=== PATIENT | male | born 1955 | race African-American/Black ===

== ENCOUNTER 2020-01-25 17:51 | Emergency (ER) | payer MEDICARE, OTHER ==
[2020-01-25 18:39] LABS: #Eosinphils 0.1 thou/uL (0.0-0.7); #Lymphocytes 1.7 thou/uL (1.20-3.40); #Monocytes 0.7 thou/uL (0.11-0.59); #Neutrophils 4.6 thou/uL (1.40-6.50); %Basophils 0.3 % (0.0-1.0); %Eosinophils 0.9 % (0.0-10.0); %Lymphocytes 24.3 % (21.0-51.0); %Monocytes 9.2 % (0.0-10.0); %Neutrophils 65.4 % (42.0-75.0); Hemoglobin 8.8 g/dL (14.0-18.0); Mean Corpuscular Hemoglobin 29.4 pg (27.0-31.0); Mean Corpuscular Volume 81.6 fL (78.0-98.0); Mean Platelet Volume 8.1 fL (7.4-10.4); Platelet Count 192 thou/uL (130-400); RBC Distribution Width 15.2 % (11.5-14.5); White Blood Cell (WBC) Count 7.1 thou/uL (4.8-10.8)
[2020-01-25 18:45] LABS: INR-International Normal Ratio 1.1; PTT 38.3 sec (22.9-36.1); Prothrombin Time 14.3 sec (12.0-14.7)
[2020-01-25 19:10] LABS: ALT (SGPT) 17 U/L (8-55); AST (SGOT) 17 U/L (5-34); Albumin 3.9 g/dL (3.4-4.8); Alkaline Phosphatase 73 U/L (40-110); Anion Gap 15 mmol/L (10-20); BUN (Urea Nitrogen) 48 mg/dL (8.4-25.7); Bilirubin, Total 0.4 mg/dL (0.2-1.2); Calc. Creatinine Clearance 0 mL/min (70-130); Calcium 9.9 mg/dL (7.8-10.44); Carbon Dioxide 19 mmol/L (23-31); Chloride 108 mmol/L (98-107); Estimated GFR-MDRD 28; Globulin 4.1 g/dL (2.4-3.5); Glucose 293 mg/dL (80-115); Lipase 99 U/L (8-78); Potassium 5.2 mmol/L (3.5-5.1); Sodium 137 mmol/L (136-145)
--- NOTE | 2020-01-25 19:15 | RAD ---
TWO VIEWS RIGHT HUMERUS: Date: 01-25-2020 History: Fall FINDINGS: No displaced fracture. IMPRESSION: No acute findings. POS: [facility]
--- NOTE | 2020-01-25 19:22 | RAD ---
FRONTAL AND LATERAL IMAGING OF THE RIGHT FOREARM: Comparison: None History: Trauma, fall, pain. FINDINGS: There is enthesophyte formation at the insertion of the triceps tendon. No displaced fracture or disl ocation. IMPRESSION: No acute osseous abnormality. POS: [facility]
--- NOTE | 2020-01-25 19:30 | RAD ---
RIGHT HIP TWO VIEWS: History: Fall at home. FINDINGS: There are arthritic changes of the hip. There are no signs of fracture or dislocation. IMPRESSION: No evidence of fracture. POS: [facility]
--- NOTE | 2020-01-25 19:31 | RAD ---
RIGHT ELBOW FOUR VIEWS: History: Fall with elbow injury. FINDINGS: There are arthritic changes of the elbow. There is coricoid and olecranon spur formation. There is a joint effusion present. I do not see definitive evidence for fracture. IMPRESSION: Joint effusion. I do not see definitive evidence for fracture but the possibility of an occult fractu re given the presence of joint effusion should be considered. If patient's pain persists, follow up i n 7-10 days would be recommended. POS: [facility]
--- NOTE | 2020-01-25 19:39 | CT ---
HEAD CT WITHOUT CONTRAST: Date: 11-30-17 Comparison: None History: Fall, on Plavix. Technique: Axial CT imaging at 5 mm intervals from vertex through the skull base without contrast. FINDINGS: The visualized paranasal sinuses and mastoid air cells are well aerated. There is no displaced calvar ial fracture, intracranial hemorrhage, midline shift, or mass effect. Periventricular hypodensity is noted, evidence of small vessel disease. IMPRESSION: No intracranial hemorrhage or displaced calvarial fracture. Stable small vessel disease. No acute fin dings. POS: [facility]
[2020-01-25 19:40] LABS: Bilirubin Negative (Negative); Blood, Urine Negative (Negative); Clarity Clear (Clear); Glucose, Urine (Dipstick) >=1000 mg/dL (Negative); Leukocyte Negative Leu/uL (Negative); Nitrite Negative (Negative); Protein, Urine (Dipstick) 10 mg/dL (Neg-Trace); Urobilinogen Normal mg/dL (Less than 2)
== END 2020-01-25 21:41 | disposition home or self-care (01) ==
LOC: ERS 17:51
DX: S42.411A Displaced simple supracondylar fracture without intercondylar fracture of right humerus, initial encounter for closed fracture (principal); E78.5 Hyperlipidemia, unspecified; E78.00 Pure hypercholesterolemia, unspecified; E11.9 Type 2 diabetes mellitus without complications; F32.9 Major depressive disorder, single episode, unspecified; Z79.84 Long term (current) use of oral hypoglycemic drugs; Z79.82 Long term (current) use of aspirin; Z79.899 Other long term (current) drug therapy; W06.XXXA Fall from bed, initial encounter
CPT/HCPCS: 29105; 36415; 70450; 80053; 81003; 83690; 84484; 85025; 85610; 85730; 93005

== ENCOUNTER 2020-02-18 17:36 | Inpatient (IN) | payer MEDICARE, OTHER ==
[2020-02-18 18:05] LABS: #Lymphocytes 1.5 thou/uL (1.20-3.40); #Monocytes 0.9 thou/uL (0.11-0.59); #Neutrophils 7.5 thou/uL (1.40-6.50); %Basophils 0.3 % (0.0-1.0); %Eosinophils 0.3 % (0.0-10.0); %Lymphocytes 15.2 % (21.0-51.0); %Monocytes 8.5 % (0.0-10.0); %Neutrophils 75.6 % (42.0-75.0); Hemoglobin 8.4 g/dL (14.0-18.0); Mean Corpuscular HGB CONC 35.2 g/dL (32.0-36.0); Mean Corpuscular Hemoglobin 28.9 pg (27.0-31.0); Mean Corpuscular Volume 81.9 fL (78.0-98.0); Mean Platelet Volume 8.9 fL (7.4-10.4); Platelet Count 160 thou/uL (130-400); RBC Distribution Width 15.2 % (11.5-14.5); Red Blood Cell (RBC) Count 2.92 mill/uL (4.70-6.10)
--- NOTE | 2020-02-18 18:27 | RAD ---
XR Chest 1 View Portable History: Fall. Dizziness Comparison: Radiograph 2018 Findings: Calcified granuloma left lung base. No confluent airspace consolidation, pneumothorax or ef fusion. No acute osseous abnormality. Multiple calcified left perihilar lymph nodes. Impression: No acute intrathoracic abnormality.
[2020-02-18 18:34] LABS: ALT (SGPT) 16 U/L (8-55); AST (SGOT) 14 U/L (5-34); Albumin 3.7 g/dL (3.4-4.8); Alkaline Phosphatase 76 U/L (40-110); Anion Gap 17 mmol/L (10-20); BUN (Urea Nitrogen) 18 mg/dL (8.4-25.7); Calc. Creatinine Clearance 0 mL/min (70-130); Calcium 9.3 mg/dL (7.8-10.44); Carbon Dioxide 22 mmol/L (23-31); Chloride 101 mmol/L (98-107); Estimated GFR-MDRD 34; Glucose 314 mg/dL (80-115); Potassium 4.5 mmol/L (3.5-5.1); Protein, Total 7.7 g/dL (5.8-8.1); Sodium 135 mmol/L (136-145)
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
[2020-02-18 18:52] LABS: CKMB 2.8 ng/mL (0-6.6)
[2020-02-18] MEDS ORDERED: hydrALAZINE 20 MG/ML VIAL ONE (18:57)
--- NOTE | 2020-02-18 18:57 | CT ---
CT CERVICAL SPINE WITHOUT CONTRAST: 02/18/20 HISTORY: Fall. Dizziness. COMPARISON: 11/30/17 FINDINGS: No craniocervical dissociation. Appropriate alignment of the lateral masses of C1 and C2. Intact odon toid process. Appropriate alignment of the facets. Stable extensive osteophyte formation throughout the cervical spine. No prevertebral soft tissue swelling. Atherosclerosis of both carotid arteries is noted. No acute changes in the upper mediastinum and lung apices. There are varying degrees of central canal stenosis and foraminal narrowing on the basis of degenerative change. At least moderate central daniela l stenosis at C3-C4, similar to the previous examination. Technique limits evaluation. Cervical spine vertebral body height is maintained. There is no cervical spine fracture. IMPRESSION: 1. No cervical spine fracture. 2. Stable degenerative changes and osteophytes throughout the cervical spine. POS: [facility]
--- NOTE | 2020-02-18 18:58 | RAD ---
TWO VIEWS RIGHT ELBOW: 02/18/20 HISTORY: Fall. Pain. COMPARISON: None. FINDINGS: There appears to be a possible joint effusion. No definite fracture, cortical irregularity or periost eal reaction. IMPRESSION: Joint effusion without obvious fracture. Correlate clinically. If there is pain or point tenderness, immobilization and follow-up imaging in 7-10 days. POS: [facility]
--- NOTE | 2020-02-18 20:05 | PDOC.FPRHP ---
- History of Present Illness Chief Complaint: fall History of Present Illness: Pt is a 64yo M with a PMH of HTN, previous stroke, DM, high cholesterol, dyslipidemia, and CKD stage 3 who presents to ED after falling from his walker. Patient was sitting on his walker, reached over to pick something up, his walker went out from under him and fell off and hit the back of his head and right arm. No LOC. He was not able to get up, so called EMS. Patient states he has been feeling fine recently. Since the fall he has an occasional headache and his vision is blurry. He denies chest pain, SOB. He had a fall and was seen in the hospital 01/25/20. Patient also complains of right leg pain and swelling. He says it is worse with laying down and with movement, off and on throughout the day, nothing relieves it, pain travels from lower leg up to thigh. ED Course: Patient's BP was 220/120 en route to the ER and was given 1x Nitro, Zofran, Hydralazine and Labetalol which decreased his BP to 147/75. Troponin was elevated at .037. Patient complaining of right elbow pain after fall and XR of Right elbow showed no fracture but patient has swelling, pain and decreased range of motion, so patient was splinted and put in a sling. - Allergies/Adverse Reactions Allergies Allergy/AdvReac Type Severity Reaction Status Date / Time sulfamethoxazole Allergy Verified 11/10/19 13:38 [From Bactrim] trimethoprim [From Bactrim] Allergy Verified 11/10/19 13:38 - Home Medications Medication Instructions Recorded Confirmed Type glipiZIDE [Glucotrol XL] 1 tab PO DAILY 03/26/16 02/18/20 History metFORMIN HCl [Glucophage] 1,000 mg PO BID 03/26/16 02/18/20 History Aspirin [Ecotrin Low Strength] 81 mg PO DAILY #0 tab 03/31/16 02/18/20 Rx Atorvastatin Calcium [Lipitor] 80 mg PO HS #0 tab 03/31/16 02/18/20 Rx Clopidogrel Bisulfate [Plavix] 75 mg PO DAILY #0 tab 03/31/16 02/18/20 Rx Ubidecarenone [CoQ-10] 300 mg PO HS 08/29/16 02/18/20 History Ubidecarenone [Coenzyme Q10] 1 tab PO HS 08/29/16 02/18/20 History Carvedilol 25 mg PO BID 02/18/20 02/18/20 History Ergocalciferol (Vitamin D2) 1 tab PO Q7DAYS 02/18/20 02/18/20 History [Vitamin D2] Gabapentin 400 mg PO TID 02/18/20 02/18/20 History Hydrochlorothiazide 25 mg PO DAILY 02/18/20 02/18/20 History Iron 27 mg PO DAILY 02/18/20 02/18/20 History Lisinopril 1 tab PO DAILY 02/18/20 02/18/20 History Sodium Bicarbonate 650 mg PO BID 02/18/20 02/18/20 History hydrALAZINE HCl [Hydralazine HCl] 1 tab PO BID 02/18/20 02/18/20 History - History PMHx: HTN, previous stroke, DM, cholesterol, dyslipidemia, anemia, CKD stage 3 PSHx: Denies FHx: Denies Social: Lives at home with sister. Denies tobacco, drug, or alcohol use. NKDA - Review of Systems General: denies: fever/chills, weight/appetite/sleep changes Eyes: reports: vision changes. denies: eye pain ENT: denies: nasal congestion Respiratory: denies: cough, shortness of breath Cardiovascular: reports: edema. denies: chest pain Gastrointestinal: denies: nausea, vomiting, abdominal pain Genitourinary: denies: incontinence Skin: denies: rashes Musculoskeletal: reports: pain, swelling Neurological: denies: syncope - Vital signs BP: 147/75 HR: 99 RR:17 Tmax: 99.8 Pox: 97% on RA Wt: 94.8 - Physical Exam Constitutional: NAD HEENT: normocephalic and atraumatic, PERRLA, no scleral icterus -HEENT: dry mucous membranes, poor dentition Neck: trachea midline, no LAD Chest: no-tender to palpation Heart: RRR, no murmurs/rubs/gallops, pulses present Lungs: CTAB, no respiratory distress Abdomen: soft, non-tender, bowel sounds present -Musculoskeletal: right arm was wrapped and in sling. Right leg had 2+ pretibial edema, no swelling, warmth, and non-tender to palpation Neurological: no focal deficit, CN II-XII intact, normal sensation Skin: no rash/lesions Heme/Lymphatic: no unusual bruising or bleeding Psychiatric: normal mood and affect FMR H&P: Results - Labs Result Diagrams: 02/18/20 17:55 02/18/20 17:55 Lab results: WBC 10.0 thou/uL (4.8-10.8) 02/18/20 17:55 Hgb 8.4 g/dL (14.0-18.0) L 02/18/20 17:55 Hct 23.9 % (42.0-52.0) L 02/18/20 17:55 MCV 81.9 fL (78.0-98.0) 02/18/20 17:55 Plt Count 160 thou/uL (130-400) 02/18/20 17:55 Neutrophils % 75.6 % (42.0-75.0) H 02/18/20 17:55 Sodium 135 mmol/L (136-145) L 02/18/20 17:55 Potassium 4.5 mmol/L (3.5-5.1) 02/18/20 17:55 Chloride 101 mmol/L (98-107) 02/18/20 17:55 Carbon Dioxide 22 mmol/L (23-31) L 02/18/20 17:55 BUN 18 mg/dL (8.4-25.7) 02/18/20 17:55 Creatinine 2.34 mg/dL (0.7-1.3) H 02/18/20 17:55 Glucose 314 mg/dL (80-115) H 02/18/20 17:55 Calcium 9.3 mg/dL (7.8-10.44) 02/18/20 17:55 Total Bilirubin 1.0 mg/dL (0.2-1.2) 02/18/20 17:55 AST 14 U/L (5-34) 02/18/20 17:55 ALT 16 U/L (8-55) 02/18/20 17:55 Alkaline Phosphatase 76 U/L (40-110) 02/18/20 17:55 CK-MB (CK-2) 2.8 ng/mL (0-6.6) 02/18/20 17:55 Serum Total Protein 7.7 g/dL (5.8-8.1) 02/18/20 17:55 Albumin 3.7 g/dL (3.4-4.8) 02/18/20 17:55 Laboratory Tests 02/18/20 17:55 Troponin I 0.037 H FMR H&P: A/P - Problem List (1) Chronic kidney disease Current Visit: No Status: Chronic Code(s): N18.9 - CHRONIC KIDNEY DISEASE, UNSPECIFIED Qualifiers: Chronic kidney disease stage: stage 2 (mild) Qualified Code(s): N18.2 - Chronic kidney disease, stage 2 (mild) (2) Diabetes mellitus Current Visit: No Status: Chronic Code(s): E11.9 - TYPE 2 DIABETES MELLITUS WITHOUT COMPLICATIONS (3) HLD (hyperlipidemia) Current Visit: No Status: Chronic Code(s): E78.5 - HYPERLIPIDEMIA, UNSPECIFIED (4) HTN (hypertension) Current Visit: No Status: Chronic Code(s): I10 - ESSENTIAL (PRIMARY) HYPERTENSION (5) Normocytic anemia Current Visit: No Status: Chronic Code(s): D64.9 - ANEMIA, UNSPECIFIED - Plan 1. Hypertensive Urgency -patient's BP was 220/120 en route to the ER and was given labetalol, hydralazine and nitro and BP down to 147/75 -continue home meds:lisinopril, carvedilol, hydralazine, monitor and titrate as needed -hydralazine 10mg IVP prn if Ps>180 -heart score 5 2. NSTEMI type II -elevated troponin in the ED at .037. Likely due to CKD or elevated BP -trend troponin -EKG was normal 3. Fall -consult PT/OT and case management -ambulate with assistance 4. Right elbow sprain -Currently splinted and put in sling. No evidence of fracture -monitor for pain 4. DM -history of Diabetes, checks blood sugars at home and they range from 100s-200s -glucose 314 on admission -continue home meds and started sliding scale insulin 5. CKD Stage 3 -Cr elevated at 2.5, baseline is 3-4 in the past -calculated Cr Cl 42ml/min - FMR H&P: Upper Level - Plan Date/Time: 02/18/202001 IFrancois DO, have evaluated this patient and agree with findings/plan as outlined by improvement intern resident. Pertinent changes/additions are listed here. 64 y/o m presents after a fall He reports 2 recent mechanical falls, denies syncope, chest pain, dyspnea, weakness, or dizziness preceding or after the falls. He recently started using a walker 3 months ago because it was hard for him to get up on his own. Pmhx sig for anemia, CKD, htn, and DMII. BP in ED as high as 205/94, given nitro and hydralazine. EKG was wnl, no ST changes or rhythm irregularities. Hypertensive urgency in the setting of chronic htn, ckd, pt likely poorly controlled at baseline. Hydralazine prn for SBPs>180, continue home meds and consider increasing regimen. Monitor on tele for arrhythmias, orthostatic BPs. NSTEMII likely related to increased heart strain from elevated blood pressures, no active chest pain, trend troponins. LIZZIE on/vs CKD, likely at baseline, monitor. Anemia of chronic disease with hb near previous values, continue to monitor. Pt recorded a temp upon arriving to the floor of 101.1, no additional symptoms or travel, will eval further. Please see improvement intern note for mgmt. of additional chronic disease. Will admit to tele obs for further work-up/eval. LOS<48hrs. Addendum - Attending - Attending Attestation Date/Time: 02/18/20 [id number] I personally evaluated the patient and discussed the management with Dr. Tucker/ Pradip I agree with the History, Examination, Assessment and Plan documented above with any addition or exceptions noted below. Presents following a fall from seated position. found to have elevated BP in the 200s/100s. This resolved with hydralazine, labetalol, and nitro paste. Stated dizziness resolved as well. While on floor, patient developed fever up to 101F. Denies prior fever, cough, congestion, SOB, URI sx, or COVID exposure. Exam unremarkable except for right elbow pain. Admit for HTN urgency, mechanical fall, and SIRS. No obvious source of infection. Blood and urine cultures obtained. Procal pending. CXR negative. EXG unremarkable. Do not suspect COVID at this time. Obs, Tele, <2 midnights. Abx pending lab further lab results.
[2020-02-18] MEDS ORDERED: Ondansetron ODT 4 MG TAB PO PRN (20:42)
[2020-02-18] MEDS ORDERED: Acetaminophen 650 MG Suppository PR PRN (20:42)
[2020-02-18] MEDS ORDERED: hydrALAZINE 25 MG TAB PO PRN (20:54)
[2020-02-18] MEDS: Acetaminophen 325 MG TAB PO PRN (21:36)
[2020-02-18 21:38] LABS: Troponin I 0.049 ng/mL (< 0.028)
[2020-02-18] MEDS ORDERED: Dextrose 50% Abboject 50 ML SYRINGE SLOW IVP PRN (22:48)
[2020-02-18] MEDS ORDERED: Dextrose 5% in Water 1,000 ML IV PRN (22:48)
[2020-02-19 00:15] LABS: Troponin I 0.055 ng/mL (< 0.028)
[2020-02-19 00:55] LABS: Bilirubin Negative (Negative); Blood, Urine Negative (Negative); Glucose, Urine (Dipstick) 500 mg/dL (Negative); Ketone, Urine Negative (Negative); Leukocyte Negative (Negative); Nitrite Negative (Negative); Protein, Urine (Dipstick) 100 mg/dL (Neg-Trace); Specific Gravity, Urine 1.015 (1.005-1.030); Urobilinogen 0.2 mg/dL (Less than 2)
[2020-02-19 00:56] LABS: Clarity Clear (Clear); Urine Culture Reflex No No
[2020-02-19] MEDS: cefTRIAXone\\ROCEPHIN 2 GM in Sodium Chloride 0.9% 100 ML IVPB SCH (00:56)
[2020-02-19 01:03] LABS: Bacteria/HPF None Seen HPF (None Seen); RBC/HPF None Seen HPF (0-3); Squamous Epithelial 0-3 HPF (0-3); WBC/HPF None Seen HPF (0-3)
[2020-02-19] MEDS ORDERED: Vancomycin HCl 1.75 GM in Sodium Chloride 0.9% 500 ML IVPB SCH (02:00)
[2020-02-19] MEDS: Acetaminophen 325 MG TAB PO PRN (03:25)
[2020-02-19 04:57] LABS: #Lymphocytes 1.7 thou/uL (1.20-3.40); #Monocytes 0.8 thou/uL (0.11-0.59); #Neutrophils 5.2 thou/uL (1.40-6.50); %Basophils 0.1 % (0.0-1.0); %Eosinophils 0.4 % (0.0-10.0); %Lymphocytes 21.6 % (21.0-51.0); %Monocytes 10.2 % (0.0-10.0); %Neutrophils 67.6 % (42.0-75.0); Hemoglobin 7.7 g/dL (14.0-18.0); Mean Corpuscular HGB CONC 33.6 g/dL (32.0-36.0); Mean Corpuscular Hemoglobin 27.7 pg (27.0-31.0); Mean Corpuscular Volume 82.4 fL (78.0-98.0); Mean Platelet Volume 8.4 fL (7.4-10.4); Platelet Count 141 thou/uL (130-400); RBC Distribution Width 15.3 % (11.5-14.5); Red Blood Cell (RBC) Count 2.77 mill/uL (4.70-6.10); White Blood Cell (WBC) Count 7.7 thou/uL (4.8-10.8)
[2020-02-19 05:23] LABS: Anion Gap 13 mmol/L (10-20); BUN (Urea Nitrogen) 19 mg/dL (8.4-25.7); Calc. Creatinine Clearance 40 mL/min (70-130); Calcium 9.1 mg/dL (7.8-10.44); Carbon Dioxide 24 mmol/L (23-31); Chloride 102 mmol/L (98-107); Estimated GFR-MDRD 32; Glucose 250 mg/dL (80-115); Sodium 135 mmol/L (136-145)
[2020-02-19] MEDS: HumaLOG 300 UNITS/3 ML VIAL SC PRN ×3 (06:20→17:18)
--- NOTE | 2020-02-19 06:23 | PDOC.FM ---
- Subjective Subjective: Patient denies any acute concerns. He has persistent elbow pain unchanged from yesterday. He denies dyspnea, difficulty urination, and leg pain. He endorses persistent blurry vision in his L eye. He has a headache that waxes and wanes- no pain at time of exam. - Objective MAR Reviewed: Yes Vital Signs & Weight: Vital Signs (12 hours) Temp Pulse Resp BP BP BP Pulse Ox 02/19/20 03:20 100.4 F H 103 H 20 170/73 H 97 02/18/20 23:29 98.9 F 100 18 114/58 L 103/53 L 110/50 L 94 L 02/18/20 20:40 101.1 F H 86 20 177/84 H 97 Weight Weight 92.17 kg I&O: 02/17/20 02/18/20 02/19/20 06:59 06:59 06:59 Intake Total 1220 Output Total 450 Balance 770 Result Diagrams: 02/19/20 04:37 02/19/20 04:37 Phys Exam - Physical Examination Constitutional: NAD HEENT: moist MMs, sclera anicteric Neck: no nodes, no JVD Respiratory: no wheezing, clear to auscultation bilateral Cardiovascular: RRR, no significant murmur, no rub Gastrointestinal: soft, non-tender, no distention, positive bowel sounds Musculoskeletal: pulses present Edema over R elbow, splinted and wrapped Neurological: moves all 4 limbs Psychiatric: normal affect Skin: no rash, normal turgor Dx/Plan - Plan Plan: NSTEMI type II -elevated troponin in the ED at .037 -> 0.058. Likely due to CKD or elevated BP - denies chest pain -EKG with no signs of acute ischemia Hypertension - initially uncontrolled, now controlled with home meds -patient's BP was 220/120 en route to the ER -Home meds:lisinopril, carvedilol, hydralazine, monitor and titrate as needed -hydralazine 10mg IVP prn if Ps>180 -heart score 5 Fall -consult PT/OT and case management -ambulate with assistance Right elbow sprain -Currently splinted and put in sling. No evidence of fracture -monitor for pain DM - A1c 10.9 -glucose 314 on admission -continue home meds and started sliding scale insulin 5. CKD Stage 3 -Cr elevated at 2.5, baseline is 3-4 in the past -calculated Cr Cl 42ml/min Addendum - Attending - Attending Attestation Date/Time: 02/19/20 0277 I personally evaluated the patient and discussed the management with Dr. Ellison I agree with the History, Examination, Assessment and Plan documented above with any addition or exceptions noted below - Patient enie complaints except for right elbow pain. Tm 101.2 VSS. A/P: 1) Hypertensive urgency- BP improved; continue current meds and adjust as indicated. 2) Fever- uncertain source except for right elbow with warmth and pain- will consult ortho for further evaluation. 3) DM- continue home meds and adjust as indicated. Disposition: Patient PCP found to be [facility] in [place]- will transfer care to hospitalist. training facilitator physician contacted and will assume care.
[2020-02-19 07:59] LABS: Hemoglobin A1c 10.9 % (4.0-6.0)
[2020-02-19 08:09] LABS: Troponin I 0.058 ng/mL (< 0.028)
[2020-02-19] MEDS: Sodium Bicarbonate Tab 325 MG TAB PO SCH ×2 (09:29→20:18)
[2020-02-19] MEDS: Enoxaparin Sodium 40 MG/0.4 ML SYRINGE SC SCH (09:29)
[2020-02-19] MEDS: Lisinopril 20 MG TAB PO SCH (09:30)
[2020-02-19] MEDS: hydrALAZINE 25 MG TAB PO SCH ×2 (09:30→20:19)
[2020-02-19] MEDS: Hydrochlorothiazide 25 MG TAB PO SCH (09:30)
[2020-02-19] MEDS: metFORMIN 500 MG TAB PO SCH ×2 (09:30→16:20)
[2020-02-19] MEDS: Carvedilol 25 MG TAB PO SCH ×2 (09:30→20:19)
[2020-02-19] MEDS: Gabapentin 400 MG CAP PO SCH ×3 (09:30→20:19)
[2020-02-19] MEDS: Clopidogrel Bisulfate 75 MG TAB PO SCH (09:30)
[2020-02-19] MEDS: Aspirin 81 mg Enteric Coated Tablet PO SCH (09:30)
[2020-02-19] MEDS: Ferrous Sulfate 325 MG TAB PO SCH (09:31)
[2020-02-19] MEDS: Ubidecarenone 50 MG CAP PO SCH (20:19)
[2020-02-19] MEDS: Atorvastatin Calcium 40 MG TAB PO SCH (20:19)
[2020-02-19] MEDS ORDERED: UBIDECARENONE 300 MG PO SCH (21:00)
--- NOTE | 2020-02-19 22:27 | CON ---
DATE OF CONSULTATION: CHIEF COMPLAINT: Right elbow pain. HISTORY OF PRESENT ILLNESS: Mr. Hutchinson is a 64-year-old male who was admitted for hypertensive urgency with a blood pressure of 220/120. He has fallen several times. He fell 3 weeks ago and landed on his right arm. He had elbow pain at that time. He reports being evaluated and splinted. He fell again yesterday onto the arm and has worsening pain since then. He has been again in a splint. He did have a fever overnight, and there has been some concern that he may have an elbow infection. Orthopedics was consulted to evaluate the elbow. He is currently resting in a sling. He is lying in bed. He is comfortable at rest. PAST MEDICAL HISTORY: Hypertension, previous stroke, diabetes, hypercholesterolemia, chronic anemia, chronic kidney disease. PAST SURGICAL HISTORY: None. FAMILY MEDICAL HISTORY: Noncontributory. SOCIAL HISTORY: The patient lives with his sister. He denies tobacco, alcohol, or drug use. ALLERGIES: NO KNOWN DRUG ALLERGIES. IMAGES: X-rays of the right elbow demonstrate an elbow effusion. There is no acute fracture or deformity. PHYSICAL EXAMINATION: VITAL SIGNS: Temperature is 99.2. He did have a temperature of 100.4 last night. Blood pressure is 133/64, 98% on room air. GENERAL: He is lying supine. He is alert. He answers questions appropriately. No apparent distress. HEENT: Normocephalic and atraumatic. MUSCULOSKELETAL: The right arm is evaluated. It is warm and well perfused. He is sitting at a 90 degrees angle of flexion and he flexes beyond that only approximately 5 to 10 degrees without pain. The elbow is somewhat warm to touch. He has no significant olecranon bursal swelling, but there is some swelling of the anterolateral elbow. He is tender to palpation at that site. Neurovascular intact in the hand. IMPRESSION: History of recent falls with elbow injury, hypertensive urgency, possible underlying elbow infection versus gouty arthritis. PLAN: At this point, I would like to order some labs for tomorrow morning including a CBC, ESR, and CRP as well as uric acid level. We will see if the patient continues to have fevers in-house, his exam changes. If he continues to be febrile and laboratory studies show an inflammatory condition, we likely will need to proceed with elbow aspiration. We will let him eat and drink for now tonight. We will re-evaluate the patient first thing in the morning. Job ID: [id number]
[2020-02-20] MEDS: cefTRIAXone\\ROCEPHIN 2 GM in Sodium Chloride 0.9% 100 ML IVPB SCH (00:04)
[2020-02-20] MEDS: Vancomycin 1 GM in Premix Bag 1 BAG IVPB SCH (02:21)
[2020-02-20 04:47] LABS: #Lymphocytes 1.4 thou/uL (1.20-3.40); #Monocytes 0.6 thou/uL (0.11-0.59); #Neutrophils 5.1 thou/uL (1.40-6.50); %Basophils 0.1 % (0.0-1.0); %Eosinophils 0.5 % (0.0-10.0); %Monocytes 7.9 % (0.0-10.0); %Neutrophils 71.5 % (42.0-75.0); Hemoglobin 7.7 g/dL (14.0-18.0); Mean Corpuscular HGB CONC 33.6 g/dL (32.0-36.0); Mean Corpuscular Hemoglobin 27.8 pg (27.0-31.0); Mean Corpuscular Volume 82.7 fL (78.0-98.0); Mean Platelet Volume 8.8 fL (7.4-10.4); Platelet Count 159 thou/uL (130-400); RBC Distribution Width 15.3 % (11.5-14.5); Red Blood Cell (RBC) Count 2.77 mill/uL (4.70-6.10); White Blood Cell (WBC) Count 7.1 thou/uL (4.8-10.8)
[2020-02-20 05:15] LABS: CRP (Inflammatory) 18.33 mg/dL (= or < 0.5); Uric Acid 11.8 mg/dL (3.5-7.2)
[2020-02-20 07:01] LABS: ALT (SGPT) 22 U/L (8-55); AST (SGOT) 29 U/L (5-34); Albumin 3.2 g/dL (3.4-4.8); Alkaline Phosphatase 88 U/L (40-110); Anion Gap 15 mmol/L (10-20); BUN (Urea Nitrogen) 20 mg/dL (8.4-25.7); Bilirubin, Total 0.4 mg/dL (0.2-1.2); CK (CPK) 410 U/L (30-200); Calc. Creatinine Clearance 40 mL/min (70-130); Calcium 9.4 mg/dL (7.8-10.44); Carbon Dioxide 23 mmol/L (23-31); Chloride 104 mmol/L (98-107); Estimated GFR-MDRD 33; Globulin 4.2 g/dL (2.4-3.5); Glucose 114 mg/dL (80-115); Potassium 3.9 mmol/L (3.5-5.1); Protein, Total 7.4 g/dL (5.8-8.1); Sodium 138 mmol/L (136-145)
[2020-02-20] MEDS: Acetaminophen 325 MG TAB PO PRN ×3 (09:18→22:40)
[2020-02-20] MEDS: Aspirin 81 mg Enteric Coated Tablet PO SCH (09:20)
[2020-02-20] MEDS: Hydrochlorothiazide 25 MG TAB PO SCH (09:20)
[2020-02-20] MEDS: hydrALAZINE 25 MG TAB PO SCH ×2 (09:20→21:01)
[2020-02-20] MEDS: Carvedilol 25 MG TAB PO SCH ×2 (09:21→21:01)
[2020-02-20] MEDS: Gabapentin 400 MG CAP PO SCH ×2 (09:21→21:01)
[2020-02-20] MEDS: Ferrous Sulfate 325 MG TAB PO SCH (09:21)
[2020-02-20] MEDS: Clopidogrel Bisulfate 75 MG TAB PO SCH (09:21)
[2020-02-20] MEDS: Lisinopril 20 MG TAB PO SCH (09:21)
[2020-02-20] MEDS: Insulin Glargine 10 UNITS in Pre-Filled Syringe 1 EACH SC SCH (09:24)
[2020-02-20] MEDS: Enoxaparin Sodium 40 MG/0.4 ML SYRINGE SC SCH (09:26)
--- NOTE | 2020-02-20 13:48 | PRG ---
DATE OF SERVICE: 02/20/2020 SUBJECTIVE: Mr. Hutchinson today is examined with myself and Dr. Valeriy Rodriguez for his painful right elbow. I will refer you to Dr. Rodriguez's consultation note dated February 19, 2020, for details of his history of present illness. Today, Mr. Hutchinson continues to complain of right elbow pain with any type of motion. He points to the lateral aspect and anterior aspect of the elbow as areas of maximal discomfort. He does not feel as though the symptoms have improved whatsoever. He also continues to run some low-grade fevers. OBJECTIVE: VITAL SIGNS: Temperature of 99, heart rate of 99, respiratory rate of 20, and blood pressure of 147/72. EXTREMITIES: The right upper extremity is remarkable for a sling, that was adjusted. The arm is remarkable for increased warmth at the elbow as well as the lower arm. He is found to have intact sensation in the radial, median, and ulnar distributions distally. He is able to wiggle his fingers and wrist normally. The elbow has an arc of motion from 95 degrees to approximately 60 degrees with pain beyond this narrow range of motion. LABORATORY DATA: He was found to have a white count of 7, hematocrit of 22.9, and 159,000 platelets. His CRP is 18.3 with a sedimentation rate of 81 and his uric acid is 11.8. ASSESSMENT: Today, I again discussed with the patient that the differential includes gout versus a septic joint. Given the fact that he has been running low-grade fevers, does have elevated inflammatory markers and his pain does feel consistent with infection, I would like to proceed with an incision and drainage of this right elbow. I did discuss with the patient that his uric acid level is certainly elevated and this may well be gout. However, given that he has been on antibiotics, I am not sure an aspiration would be terribly helpful from the standpoint of isolating organism, and I think given the duration of time that he has had pain, the fevers with no obvious infectious source other than this elbow makes me concerned for septic joint. We will place the patient at n.p.o. after midnight. We will hold his Lovenox. Plan is to proceed to the operating room tomorrow morning for incision and drainage. Informed consent will be obtained prior to surgery. Job ID: [id number] [facility]
--- NOTE | 2020-02-20 17:45 | PDOC.HOSPP ---
- Subjective Encounter Date: 02/20/20 Encounter Time: 15:50 Subjective: pt up in bed no complains. - Objective Vital Signs & Weight: Vital Signs (12 hours) Temp Pulse Pulse Pulse Pulse Resp BP 02/20/20 16:00 97.8 F 91 17 02/20/20 12:00 99.7 F H 93 17 02/20/20 10:30 104 H 99 104 H 101/59 L 02/20/20 09:20 102 H 02/20/20 09:05 101 H 174/75 H 02/20/20 08:00 100.5 F H 102 H 17 BP BP BP BP Pulse Ox 02/20/20 16:00 137/63 96 02/20/20 12:00 108/53 L 96 02/20/20 10:30 121/56 L 121/61 02/20/20 09:20 02/20/20 09:05 02/20/20 08:00 128/61 95 Weight Weight 205 lb I&O: 02/19/20 02/20/20 02/21/20 06:59 06:59 06:59 Intake Total 1220 1250 720 Output Total 450 1125 Balance 770 125 720 Result Diagrams: 02/20/20 04:03 02/20/20 04:03 Additional Labs: Accuchecks 02/20/20 02/20/20 02/20/20 16:27 12:32 05:22 POC Glucose 170 H 103 120 H 02/19/20 19:53 POC Glucose 149 H Hospitalist ROS - Review of Systems Cardiovascular: denies: chest pain, palpitations, orthopnea, paroxysmal noc. dyspnea, edema, light headedness, other Gastrointestinal: denies: nausea, vomiting, abdominal pain, diarrhea, constipation, melena, hematochezia, other Genitourinary: denies: dysuria, frequency, incontinence, hematuria, retention, other - Medication Medications: Active Medications Generic Name Dose Route Start Last Admin Trade Name Freq PRN Reason Stop Dose Admin Acetaminophen 650 mg 02/18/20 20:42 02/20/20 13:10 Tylenol PO 650 mg Q4H PRN Administration Headache/Fever/Mild Pain (1-3) Aspirin 81 mg 02/19/20 09:00 02/20/20 09:20 Ecotrin PO 81 mg DAILY GRAYSON Administration Atorvastatin Calcium 80 mg 02/19/20 21:00 02/19/20 20:19 Lipitor PO 80 mg HS GRAYSON Administration Carvedilol 25 mg 02/19/20 09:00 02/20/20 09:21 Coreg PO 25 mg BID GRAYSON Administration Clopidogrel Bisulfate 75 mg 02/19/20 09:00 02/20/20 09:21 Plavix PO 75 mg DAILY GRAYSON Administration Coenzyme Q10 50 mg 02/19/20 21:00 02/19/20 20:19 Coenzyme Q10 PO 50 mg HS GRAYSON Administration Enoxaparin Sodium 40 mg 02/19/20 09:00 02/20/20 09:26 Lovenox SC Not Given 899 GRAYSON Ferrous Sulfate 325 mg 02/19/20 08:00 02/20/20 09:21 Feosol PO 325 mg QAM-WM GRAYSON Administration Gabapentin 400 mg 02/20/20 09:00 02/20/20 09:21 Neurontin PO 400 mg BID GRAYSON Administration Glipizide 10 mg 02/19/20 09:00 02/20/20 09:20 Glucotrol Xl PO 10 mg DAILY GRAYSON Administration Hydralazine HCl 25 mg 02/19/20 09:00 02/20/20 09:20 Apresoline PO 25 mg BID GRAYSON Administration Hydrochlorothiazide 25 mg 02/19/20 09:00 02/20/20 09:20 Hydrochlorothiazide PO 25 mg DAILY GRAYSON Administration Ceftriaxone Sodium 2 gm/ 100 mls @ 200 mls/hr 02/19/20 01:00 02/20/20 00:04 Sodium Chloride IVPB 100 mls 0100 GRAYSON Administration Vancomycin HCl 1 gm/ Device 200 mls @ 200 mls/hr 02/20/20 02:00 02/20/20 02: 21 IVPB 200 mls 0200 GRAYSON Administration Insulin Glargine 10 units/ 0.1 mls @ 0 mls/hr 02/20/20 09:00 02/20/20 09:24 Miscellaneous Medication SC 0.1 mls QAM GRAYSON Administration Insulin Human Lispro 0 units 02/18/20 22:48 02/19/20 17:18 Humalog SC 4 unit .MILD SLIDING SCALE PRN Administration Mild Correctional Scale Lisinopril 40 mg 02/19/20 09:00 02/20/20 09:21 Zestril PO 40 mg DAILY GRAYSON Administration Sodium Chloride 10 ml 02/19/20 21:00 02/20/20 09:27 Flush - Normal Saline IVF 10 ml Q12HR GRAYSON Administration - Exam Heart: negative: RRR, no murmur, no gallops, no rubs, normal peripheral pulses, irregular, diminshed peripheral pulses, murmur present, II/IV, III/IV Extremities: 2+ LE edema Extremities - other findings: right knee warm to touch and swelling, right elbow in sling, Skin: negative: normal turgor, no lesions, no rashes, tenting Neurological - other findings: able to move right fingers. Hosp A/P (1) Joint infection Code(s): M00.9 - PYOGENIC ARTHRITIS, UNSPECIFIED Status: Acute (2) Chronic kidney disease Code(s): N18.9 - CHRONIC KIDNEY DISEASE, UNSPECIFIED Status: Chronic Qualifiers: Chronic kidney disease stage: stage 2 (mild) Qualified Code(s): N18.2 - Chronic kidney disease, stage 2 (mild) (3) Diabetes mellitus Code(s): E11.9 - TYPE 2 DIABETES MELLITUS WITHOUT COMPLICATIONS Status: Chronic (4) HLD (hyperlipidemia) Code(s): E78.5 - HYPERLIPIDEMIA, UNSPECIFIED Status: Chronic (5) HTN (hypertension) Code(s): I10 - ESSENTIAL (PRIMARY) HYPERTENSION Status: Chronic (6) Anemia Code(s): D64.9 - ANEMIA, UNSPECIFIED Status: Acute - Plan pt going for a wash out in am of his right elbow. His right elbow is swollen will get xray. elevated crp and uric acid. will continue abx. will stop metformin he is ckd 3B. will adjust his meds per renal function. will check stool for occult. pt's anemia most likely due to ckd. will check labs in am.
--- NOTE | 2020-02-20 18:49 | RAD ---
Exam: XR Knee Rt 4 View STANDARD HISTORY: Right knee infection. COMPARISON: None FINDINGS: There is tricompartment osteophytosis. Narrowing of the medial joint compartment is present. Mild cap sular distention is present. No acute fracture, dislocation, or other acute osseous abnormality is identified. Vascular calcificat ions are seen posterior to the knee. IMPRESSION: 1. No acute osseous abnormality. There is no osseous destruction identified. 2. Osteoarthritis. 3. Small suprapatellar joint effusion. 4. If there is concern for osteomyelitis, MRI right knee could be performed for further evaluation.
[2020-02-20] MEDS: Ubidecarenone 50 MG CAP PO SCH (21:01)
[2020-02-20] MEDS: Atorvastatin Calcium 40 MG TAB PO SCH (21:01)
[2020-02-20] MEDS ORDERED: Morphine 2 MG/ML VIAL SLOW IVP SCH (23:15)
[2020-02-21] MEDS: cefTRIAXone\\ROCEPHIN 2 GM in Sodium Chloride 0.9% 100 ML IVPB SCH (00:53)
[2020-02-21] MEDS: Vancomycin 1 GM in Premix Bag 1 BAG IVPB SCH (01:27)
[2020-02-21 01:55] LABS: Vancomycin, Trough 14.7 ug/mL
[2020-02-21 04:49] LABS: #Lymphocytes 1.7 thou/uL (1.20-3.40); #Monocytes 0.8 thou/uL (0.11-0.59); #Neutrophils 5.8 thou/uL (1.40-6.50); %Basophils 0.2 % (0.0-1.0); %Eosinophils 0.4 % (0.0-10.0); %Lymphocytes 20.3 % (21.0-51.0); %Monocytes 9.2 % (0.0-10.0); %Neutrophils 69.9 % (42.0-75.0); Hemoglobin 7.7 g/dL (14.0-18.0); Mean Corpuscular HGB CONC 33.1 g/dL (32.0-36.0); Mean Corpuscular Hemoglobin 27.3 pg (27.0-31.0); Mean Corpuscular Volume 82.5 fL (78.0-98.0); Mean Platelet Volume 8.6 fL (7.4-10.4); Platelet Count 194 thou/uL (130-400); RBC Distribution Width 15.2 % (11.5-14.5); White Blood Cell (WBC) Count 8.3 thou/uL (4.8-10.8)
[2020-02-21 05:07] LABS: Anion Gap 12 mmol/L (10-20); BUN (Urea Nitrogen) 22 mg/dL (8.4-25.7); Calc. Creatinine Clearance 39 mL/min (70-130); Calcium 9.5 mg/dL (7.8-10.44); Carbon Dioxide 27 mmol/L (23-31); Chloride 102 mmol/L (98-107); Estimated GFR-MDRD 32; Glucose 108 mg/dL (80-115); Potassium 4.2 mmol/L (3.5-5.1); Sodium 137 mmol/L (136-145)
[2020-02-21] MEDS: Acetaminophen 325 MG TAB PO PRN ×2 (05:07→11:44)
[2020-02-21] MEDS: Carvedilol 25 MG TAB PO SCH ×2 (05:07→20:56)
[2020-02-21] MEDS ORDERED: Bisacodyl 5 MG TAB PO PRN (06:49)
[2020-02-21] MEDS ORDERED: Lidocaine 1% (PF) 30 ML VIAL ONE (11:38)
[2020-02-21] MEDS: hydrALAZINE 25 MG TAB PO SCH ×2 (11:43→20:55)
[2020-02-21] MEDS: Hydrochlorothiazide 25 MG TAB PO SCH (11:43)
[2020-02-21] MEDS: Clopidogrel Bisulfate 75 MG TAB PO SCH (11:44)
[2020-02-21] MEDS: Aspirin 81 mg Enteric Coated Tablet PO SCH (11:44)
[2020-02-21] MEDS: Lisinopril 20 MG TAB PO SCH (11:44)
[2020-02-21] MEDS: Gabapentin 400 MG CAP PO SCH ×2 (11:44→20:56)
[2020-02-21] MEDS: Insulin Glargine 10 UNITS in Pre-Filled Syringe 1 EACH SC SCH (11:45)
[2020-02-21] MEDS: Ferrous Sulfate 325 MG TAB PO SCH (11:48)
--- NOTE | 2020-02-21 12:39 | PDOC.HOSPP ---
- Subjective Encounter Date: 02/21/20 Encounter Time: 12:30 Subjective: f/u for R elbow pain/edema with planned I&D for effusion and concern for septic arthritis. Apparently pt was denied the surgery per Anesthesia due to concern for cardiac workup. - Objective Vital Signs & Weight: Vital Signs (12 hours) Temp Pulse Resp BP BP BP Pulse Ox 02/21/20 11:43 95 02/21/20 10:20 97.4 F L 95 18 165/72 H 169/77 H 96 02/21/20 07:58 96 02/21/20 07:53 98.9 F 98 17 156/70 H 96 02/21/20 05:28 98.7 F 96 153/68 H 02/21/20 03:39 99.5 F 105 H 18 161/73 H 95 Weight Weight 204 lb I&O: 02/20/20 02/21/20 02/22/20 06:59 06:59 06:59 Intake Total 1250 1380 Output Total 1125 Balance 125 1380 Result Diagrams: 02/21/20 04:26 02/21/20 04:26 Additional Labs: Accuchecks 02/21/20 02/21/20 02/20/20 10:38 06:00 20:21 POC Glucose 169 H 119 H 97 02/20/20 16:27 POC Glucose 170 H Microbiology 02/21/20 03:10 Stool Stool Occult Blood (MARYURI) - Final 02/18/20 00:40 Urine clean catch Urine Culture - Final Beta-hemolytic Streptococcus 02/18/20 23:43 Venous blood - Left Arm Blood Culture - Preliminary Specimen has been received and culture in progress. No Growth to date. 02/18/20 21:46 Venous blood - Left Hand Blood Culture - Preliminary NO GROWTH AT 48 HOURS Laboratory Tests 07/15/19 02/18/20 02/18/20 07:20 17:55 17:55 Hgb 8.4 L Creatinine 2.34 H Hemoglobin A1c 13.4 H C-Reactive Protein Procalcitonin Vancomycin Trough 02/18/20 02/19/20 02/19/20 21:46 04:37 04:37 Hgb 7.7 L Creatinine 2.46 H Hemoglobin A1c C-Reactive Protein Procalcitonin 0.56 Vancomycin Trough 02/19/20 02/19/20 02/20/20 04:37 07:31 04:03 Hgb Creatinine Hemoglobin A1c 10.9 H C-Reactive Protein 18.33 H Procalcitonin 0.60 Vancomycin Trough 02/20/20 02/20/20 02/21/20 04:03 04:03 01:26 Hgb 7.7 L Creatinine 2.44 H Hemoglobin A1c C-Reactive Protein Procalcitonin Vancomycin Trough 14.7 Radiology Reviewed by me: Yes (2D echo - EF 55-60%, diast dysfxn) EKG Reviewed by me: Yes (Tele - SR) Hospitalist ROS - Medication Medications: Active Medications Generic Name Dose Route Start Last Admin Trade Name Freq PRN Reason Stop Dose Admin Acetaminophen 650 mg 02/18/20 20:42 02/21/20 11:44 Tylenol PO 650 mg Q4H PRN Administration Headache/Fever/Mild Pain (1-3) Aspirin 81 mg 02/19/20 09:00 02/21/20 11:44 Ecotrin PO 81 mg DAILY GRAYSON Administration Atorvastatin Calcium 80 mg 02/19/20 21:00 02/20/20 21:01 Lipitor PO 80 mg HS GRAYSON Administration Bisacodyl 5 mg 02/21/20 06:49 02/21/20 11:44 Dulcolax PO 5 mg PRN PRN Administration CONSTIPATION Carvedilol 25 mg 02/19/20 09:00 02/21/20 05:07 Coreg PO 25 mg BID GRAYSON Administration Clopidogrel Bisulfate 75 mg 02/19/20 09:00 02/21/20 11:44 Plavix PO 75 mg DAILY GRAYSON Administration Coenzyme Q10 50 mg 02/19/20 21:00 02/20/20 21:01 Coenzyme Q10 PO 50 mg HS GRAYSON Administration Enoxaparin Sodium 40 mg 02/19/20 09:00 02/20/20 09:26 Lovenox SC Not Given 899 GRAYSON Ferrous Sulfate 325 mg 02/19/20 08:00 02/21/20 11:48 Feosol PO 325 mg QAM-WM GRAYSON Administration Gabapentin 400 mg 02/20/20 09:00 02/21/20 11:44 Neurontin PO 400 mg BID GRAYSON Administration Glipizide 10 mg 02/19/20 09:00 02/21/20 11:44 Glucotrol Xl PO 10 mg DAILY GRAYSON Administration Hydralazine HCl 25 mg 02/19/20 09:00 02/21/20 11:43 Apresoline PO 25 mg BID GRAYSON Administration Hydrochlorothiazide 25 mg 02/19/20 09:00 02/21/20 11:43 Hydrochlorothiazide PO 25 mg DAILY GRAYSON Administration Ceftriaxone Sodium 2 gm/ 100 mls @ 200 mls/hr 02/19/20 01:00 02/21/20 00:53 Sodium Chloride IVPB 100 mls 0100 GRAYSON Administration Vancomycin HCl 1 gm/ Device 200 mls @ 200 mls/hr 02/20/20 02:00 02/21/20 01: 27 IVPB 200 mls 0200 GRAYSON Administration Insulin Glargine 10 units/ 0.1 mls @ 0 mls/hr 02/20/20 09:00 02/21/20 11:45 Miscellaneous Medication SC Not Given QAM [facility] Insulin Human Lispro 0 units 02/18/20 22:48 02/19/20 17:18 Humalog SC 4 unit .MILD SLIDING SCALE PRN Administration Mild Correctional Scale Lisinopril 40 mg 02/19/20 09:00 02/21/20 11:44 Zestril PO 40 mg DAILY GRAYSON Administration Sodium Chloride 10 ml 02/19/20 21:00 02/21/20 11:45 Flush - Normal Saline IVF 10 ml Q12HR GRAYSON Administration Sodium Chloride 10 ml 02/19/20 10:10 02/21/20 05:06 Flush - Normal Saline IVF 10 ml PRN PRN Administration Saline Flush - Exam General Appearance: NAD, awake alert Eye: PERRL, anicteric sclera ENT: normocephalic atraumatic, no oropharyngeal lesions Neck: supple, symmetric, no JVD, no thyromegaly, no lymphadenopathy Heart: RRR, no gallops, no rubs, normal peripheral pulses Heart - other findings: S1, S2 Respiratory: CTAB, no wheezes, no rales, no ronchi, normal chest expansion Gastrointestinal: soft, non-tender, non-distended, normal bowel sounds, no palpable masses Extremities: no cyanosis Extremities - other findings: R elbow with TTP, edema, warmth/erythema with fluctuance Skin: normal turgor Neurological: cranial nerve grossly intact, no new deficit Musculoskeletal: normal tone, generalized weakness Musculoskeletal - other findings: R knee edema in suprapatellar region, warm/TTP Psychiatric: normal affect, A&O x 3 Hosp A/P (1) Arthropathy Code(s): M12.9 - ARTHROPATHY, UNSPECIFIED Status: Acute Plan: ? gouty arthropathy vs septic, continue Vancomycin/Rocephin, plan for joint aspiration of R elbow once cardiac cleared, Toradol 15mg IV q6h, Colchicine contraindicated with Coreg, consider Prednisone trial (2) Type 2 myocardial infarction Code(s): I21.A1 - MYOCARDIAL INFARCTION TYPE 2 Status: Acute Plan: Likley due to demand ischemia in context of HTN at the time of admit, Cardiology consult pending, Echo with preserved EF 55-60% (3) Anemia in CKD (chronic kidney disease) Code(s): N18.9 - CHRONIC KIDNEY DISEASE, UNSPECIFIED; D63.1 - ANEMIA IN CHRONIC KIDNEY DISEASE Status: Chronic Plan: Stable H/H trend, monitor clinically (4) Diabetes mellitus Code(s): E11.9 - TYPE 2 DIABETES MELLITUS WITHOUT COMPLICATIONS Status: Chronic Plan: Continue Glargine 10u sc qAM, Glipizide 10mg daily, ISS, ADA (5) HTN (hypertension) Code(s): I10 - ESSENTIAL (PRIMARY) HYPERTENSION Status: Chronic Qualifiers: Hypertension type: essential hypertension Qualified Code(s): I10 - Essential (primary) hypertension Plan: Labile, resume home BP regimen, serial monitoring - Plan continue antibiotics, PT/OT, social insurance administrator, DVT proph w/SCDs Stable currently Add Toradol 15mg IV q6h Ortho planning I&D R elbow when cardiac clearance given Continue Rocephin/Vancomycin Cardiology consult pending AM lab: BMP, CBC
[2020-02-21] MEDS ORDERED: Ketorolac Tromethamine 30 MG/ML VIAL IVP SCH (13:00)
[2020-02-21] MEDS ORDERED: Morphine 2 MG/ML VIAL SLOW IVP PRN (13:03)
[2020-02-21] MEDS: Ketorolac Tromethamine 30 MG/ML VIAL IVP SCH ×2 (18:11→22:59)
[2020-02-21] MEDS: Atorvastatin Calcium 40 MG TAB PO SCH (20:56)
[2020-02-21] MEDS: Ubidecarenone 50 MG CAP PO SCH (20:56)
--- NOTE | 2020-02-21 22:22 | CON ---
DATE OF CONSULTATION: HISTORY OF PRESENT ILLNESS: The patient is a 64-year-old gentleman, who presented with a septic elbow and is here for cardiac evaluation. The patient has a long history of cerebrovascular disease. 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 The patient subsequently has been on medical therapy. The patient denies having any history of chest discomfort. He denies having any dyspnea. The patient underwent drainage of his elbow. He presented after he had a fall. The patient was noted to be markedly hypertensive. He denied having any chest discomfort. He denies having any PND or orthopnea. PAST MEDICAL HISTORY: 1. Cerebrovascular disease. 2. Diabetes mellitus. 3. Hypertension. 4. Dyslipidemia. PAST SURGICAL HISTORY: None. SOCIAL HISTORY: Nonsmoker. ALLERGIES: SULFA DRUGS. MEDICATIONS: 1. Metformin 100 b.i.d. 2. Glucotrol 1 tablet daily. 3. Lisinopril 40 daily. 4. HCTZ 25 daily. 5. Plavix 75 daily. 6. Coreg 25 b.i.d. 7. Lipitor 80 at bedtime. 8. Aspirin 81 daily. 9. Hydralazine 25 b.i.d. FAMILY HISTORY: Positive family history of coronary artery disease. REVIEW OF SYSTEMS: Ten-point system otherwise unremarkable. PHYSICAL EXAMINATION: GENERAL: A well-developed gentleman, in no acute distress. VITAL SIGNS: Blood pressure 165/70. NECK: No jugular venous distention. LUNGS: Clear to auscultation. HEART: Regular rate and rhythm. Normal S1 and S2. ABDOMEN: Nondistended. EXTREMITIES: Showed no edema. VASCULAR: Radial pulses are 2+. LABORATORY DATA: White blood count 8.3, hemoglobin 7.7, hematocrit 23.1, platelets 194. Sodium was 137, potassium 4.2, chloride 102, bicarbonate 27, BUN 22, creatinine 2.5, glucose is 108. Troponin was 0.058. EKG normal sinus rhythm with a prolonged QT interval and an echocardiogram revealed normal EF with diastolic dysfunction. IMPRESSION: 1. Septic elbow. 2. Hypertensive crisis. 3. History of cerebrovascular disease. 4. Diabetes mellitus. 5. Dyslipidemia. 6. Chronic renal failure. PLAN: This gentleman presents with septic elbow. He has apparently underwent drainage. From a cardiac standpoint, he is stable. The patient is on appropriate medication. We will follow this patient with you through his hospitalization. Job ID: [id number] MTDD
[2020-02-22] MEDS: cefTRIAXone\\ROCEPHIN 2 GM in Sodium Chloride 0.9% 100 ML IVPB SCH (01:38)
[2020-02-22] MEDS: Vancomycin 1 GM in Premix Bag 1 BAG IVPB SCH (02:25)
[2020-02-22] MEDS: Ketorolac Tromethamine 30 MG/ML VIAL IVP SCH ×2 (04:56→11:57)
[2020-02-22 05:05] LABS: Anion Gap 12 mmol/L (10-20); BUN (Urea Nitrogen) 30 mg/dL (8.4-25.7); Calc. Creatinine Clearance 35 mL/min (70-130); Calcium 9.1 mg/dL (7.8-10.44); Carbon Dioxide 27 mmol/L (23-31); Chloride 101 mmol/L (98-107); Estimated GFR-MDRD 28; Glucose 105 mg/dL (80-115); Potassium 4.2 mmol/L (3.5-5.1); Sodium 136 mmol/L (136-145)
[2020-02-22 06:11] LABS: #Lymphocytes 1.4 thou/uL (1.20-3.40); #Monocytes 0.7 thou/uL (0.11-0.59); #Neutrophils 5.4 thou/uL (1.40-6.50); %Basophils 0.1 % (0.0-1.0); %Eosinophils 0.5 % (0.0-10.0); %Lymphocytes 18.6 % (21.0-51.0); %Monocytes 8.8 % (0.0-10.0); %Neutrophils 71.9 % (42.0-75.0); Hemoglobin 7.1 g/dL (14.0-18.0); Mean Corpuscular HGB CONC 35.8 g/dL (32.0-36.0); Mean Corpuscular Hemoglobin 29.4 pg (27.0-31.0); Mean Corpuscular Volume 82.1 fL (78.0-98.0); Mean Platelet Volume 8.2 fL (7.4-10.4); Platelet Count 184 thou/uL (130-400); RBC Distribution Width 15.3 % (11.5-14.5); Red Blood Cell (RBC) Count 2.41 mill/uL (4.70-6.10); White Blood Cell (WBC) Count 7.6 thou/uL (4.8-10.8)
[2020-02-22] MEDS: Aspirin 81 mg Enteric Coated Tablet PO SCH (08:52)
[2020-02-22] MEDS: Lisinopril 20 MG TAB PO SCH (08:52)
[2020-02-22] MEDS: Ferrous Sulfate 325 MG TAB PO SCH (08:52)
[2020-02-22] MEDS: Clopidogrel Bisulfate 75 MG TAB PO SCH (08:52)
[2020-02-22] MEDS: Carvedilol 25 MG TAB PO SCH ×2 (08:52→20:15)
[2020-02-22] MEDS: Gabapentin 400 MG CAP PO SCH ×2 (08:52→20:15)
[2020-02-22] MEDS: Hydrochlorothiazide 25 MG TAB PO SCH (08:52)
[2020-02-22] MEDS: hydrALAZINE 25 MG TAB PO SCH ×2 (08:53→20:15)
[2020-02-22] MEDS: Insulin Glargine 10 UNITS in Pre-Filled Syringe 1 EACH SC SCH (08:56)
[2020-02-22] MEDS: Acetaminophen 325 MG TAB PO PRN ×2 (11:48→17:23)
--- NOTE | 2020-02-22 12:21 | PDOC.HOSPP ---
- Subjective Encounter Date: 02/22/20 Encounter Time: 12:00 Subjective: f/u for R elbow arthropathy s/p aspiration pending final identification. Receiving Vanc/Rocephin/Toradol. Nursing reports pt more somnolent today with low-grade fever. Pt states he wants to have a BM but can't, last one 2 days ago. - Objective Vital Signs & Weight: Vital Signs (12 hours) Temp Pulse Resp BP BP Pulse Ox 02/22/20 08:53 95 02/22/20 07:59 95 02/22/20 07:54 98.8 F 95 17 110/59 L 95 02/22/20 03:58 99.7 F H 90 16 112/61 97 02/22/20 00:20 99 Weight Weight 204 lb 3.2 oz I&O: 02/21/20 02/22/20 02/23/20 06:59 06:59 06:59 Intake Total 1380 600 Output Total 300 Balance 1380 300 Result Diagrams: 02/22/20 04:16 02/22/20 04:16 Additional Labs: Accuchecks 02/22/20 02/22/20 02/21/20 11:15 05:45 21:36 POC Glucose 199 H 116 H 143 H 02/21/20 16:53 POC Glucose 198 H Microbiology 02/21/20 03:10 Stool Stool Occult Blood (MARYURI) - Final 02/18/20 00:40 Urine clean catch Urine Culture - Final Beta-hemolytic Streptococcus 02/18/20 23:43 Venous blood - Left Arm Blood Culture - Preliminary Specimen has been received and culture in progress. No Growth to date. 02/18/20 21:46 Venous blood - Left Hand Blood Culture - Preliminary NO GROWTH AT 48 HOURS Laboratory Tests 07/15/19 02/18/20 02/18/20 07:20 17:55 17:55 Hgb 8.4 L Creatinine 2.34 H Hemoglobin A1c 13.4 H C-Reactive Protein Procalcitonin Vancomycin Trough 02/18/20 02/19/20 02/19/20 21:46 04:37 04:37 Hgb 7.7 L Creatinine 2.46 H Hemoglobin A1c C-Reactive Protein Procalcitonin 0.56 Vancomycin Trough 02/19/20 02/19/20 02/20/20 04:37 07:31 04:03 Hgb Creatinine Hemoglobin A1c 10.9 H C-Reactive Protein 18.33 H Procalcitonin 0.60 Vancomycin Trough 02/20/20 02/20/20 02/21/20 04:03 04:03 01:26 Hgb 7.7 L Creatinine 2.44 H Hemoglobin A1c C-Reactive Protein Procalcitonin Vancomycin Trough 14.7 EKG Reviewed by me: Yes (Tele - SR) Hospitalist ROS - Medication Medications: Active Medications Generic Name Dose Route Start Last Admin Trade Name Freq PRN Reason Stop Dose Admin Acetaminophen 650 mg 02/18/20 20:42 02/22/20 11:48 Tylenol PO 650 mg Q4H PRN Administration Headache/Fever/Mild Pain (1-3) Aspirin 81 mg 02/19/20 09:00 02/22/20 08:52 Ecotrin PO 81 mg DAILY GRAYSON Administration Atorvastatin Calcium 80 mg 02/19/20 21:00 02/21/20 20:56 Lipitor PO 80 mg HS GRAYSON Administration Bisacodyl 5 mg 02/21/20 06:49 02/21/20 11:44 Dulcolax PO 5 mg PRN PRN Administration CONSTIPATION Carvedilol 25 mg 02/19/20 09:00 02/22/20 08:52 Coreg PO 25 mg BID GRAYSON Administration Clopidogrel Bisulfate 75 mg 02/19/20 09:00 02/22/20 08:52 Plavix PO 75 mg DAILY GRAYSNO Administration Coenzyme Q10 50 mg 02/19/20 21:00 02/21/20 20:56 Coenzyme Q10 PO 50 mg HS GRAYSON Administration Enoxaparin Sodium 40 mg 02/19/20 09:00 02/20/20 09:26 Lovenox SC Not Given 8[facility] Ferrous Sulfate 325 mg 02/19/20 08:00 02/22/20 08:52 Feosol PO 325 mg QAM-WM GRAYSON Administration Gabapentin 400 mg 02/20/20 09:00 02/22/20 08:52 Neurontin PO 400 mg BID GRAYSON Administration Glipizide 10 mg 02/19/20 09:00 02/22/20 08:52 Glucotrol Xl PO 10 mg DAILY GRAYSON Administration Hydralazine HCl 25 mg 02/19/20 09:00 02/22/20 08:53 Apresoline PO 25 mg BID GRAYSON Administration Hydrochlorothiazide 25 mg 02/19/20 09:00 02/22/20 08:52 Hydrochlorothiazide PO 25 mg DAILY GRAYSON Administration Ceftriaxone Sodium 2 gm/ 100 mls @ 200 mls/hr 02/19/20 01:00 02/22/20 01:38 Sodium Chloride IVPB 100 mls 0100 GRAYSON Administration Vancomycin HCl 1 gm/ Device 200 mls @ 200 mls/hr 02/20/20 02:00 02/22/20 02: 25 IVPB 200 mls 0200 GRAYSON Administration Insulin Glargine 10 units/ 0.1 mls @ 0 mls/hr 02/20/20 09:00 02/22/20 08:56 Miscellaneous Medication SC Not Given QAM GRAYSON Insulin Human Lispro 0 units 02/18/20 22:48 02/19/20 17:18 Humalog SC 4 unit .MILD SLIDING SCALE PRN Administration Mild Correctional Scale Ketorolac Tromethamine 15 mg 02/21/20 18:00 02/22/20 11:57 Toradol IVP 02/26/20 18:01 Not Given Q6HR GRAYSON Lisinopril 40 mg 02/19/20 09:00 02/22/20 08:52 Zestril PO 40 mg DAILY GRAYSON Administration Sodium Chloride 10 ml 02/19/20 21:00 02/22/20 11:50 Flush - Normal Saline IVF 10 ml Q12HR GRAYSON Administration Sodium Chloride 10 ml 02/19/20 10:10 02/22/20 04:56 Flush - Normal Saline IVF 10 ml PRN PRN Administration Saline Flush - Exam General - other findings: somnolent but answers questions Eye: PERRL, anicteric sclera ENT: normocephalic atraumatic, no oropharyngeal lesions ENT - other findings: poor dentition Neck: supple, symmetric, no JVD, no thyromegaly, no lymphadenopathy Heart: RRR, no gallops, no rubs, normal peripheral pulses Heart - other findings: S1, S2 Respiratory: CTAB, no wheezes, no rales, no ronchi, normal chest expansion, no tachypnea Gastrointestinal: soft, normal bowel sounds, no guarding, no rigidity, tender to palpation Gastrointestinal - other findings: mild distention Extremities: no cyanosis, no clubbing Extremities - other findings: R elbow with edema/warmth/TTP Skin: normal turgor, no lesions Neurological: cranial nerve grossly intact Musculoskeletal: generalized weakness Musculoskeletal - other findings: R knee with edema/warmth Psychiatric: oriented to person, oriented to place, somnolent Hosp A/P (1) Arthropathy Code(s): M12.9 - ARTHROPATHY, UNSPECIFIED Status: Acute Plan: ? septic vs gouty, continue Vancomycin/Rocephin, hold Toradol due to LIZZIE, R elbow aspiration cx pending (2) Type 2 myocardial infarction Code(s): I21.A1 - MYOCARDIAL INFARCTION TYPE 2 Status: Acute Plan: Likely demand ischemia, no acute intervention, medical mgmt (3) LIZZIE (acute kidney injury) Code(s): N17.9 - ACUTE KIDNEY FAILURE, UNSPECIFIED Status: Acute Plan: Start NS IV, avoid nephrotoxic meds and limit contrast exposure, serial creatinine (4) Anemia in CKD (chronic kidney disease) Code(s): N18.9 - CHRONIC KIDNEY DISEASE, UNSPECIFIED; D63.1 - ANEMIA IN CHRONIC KIDNEY DISEASE Status: Chronic Plan: Serial H/H monitoring, no active blood loss identified (5) Diabetes mellitus Code(s): E11.9 - TYPE 2 DIABETES MELLITUS WITHOUT COMPLICATIONS Status: Chronic (6) HTN (hypertension) Code(s): I10 - ESSENTIAL (PRIMARY) HYPERTENSION Status: Chronic Qualifiers: Hypertension type: essential hypertension Qualified Code(s): I10 - Essential (primary) hypertension (7) Constipation Code(s): K59.00 - CONSTIPATION, UNSPECIFIED Status: Acute Qualifiers: Constipation type: slow transit constipation Qualified Code(s): K59.01 - Slow transit constipation Plan: Start Dulcolax supp, Senokot-S - Plan continue antibiotics, PT/OT, legal services professional, DVT proph w/SCDs Stable currently Toradol 15mg IV q6h, hold given LIZZIE Await R elbow aspiration cx Continue Rocephin/Vancomycin Cardiology consult appreciated Start NS IV @ 100ml/h Bowel regimen AM lab: BMP, CBC
[2020-02-22] MEDS: Sodium Chloride 0.9% 1,000 ML IV SCH ×2 (12:39→20:21)
[2020-02-22] MEDS: Bisacodyl 10 MG SUPP PR SCH ×2 (12:40→20:14)
[2020-02-22] MEDS ORDERED: Senokot S 8.6-50 MG TAB PO SCH (12:45)
--- NOTE | 2020-02-22 14:20 | PRG ---
DATE OF SERVICE: 02/22/2020 SUBJECTIVE: The patient is seen in the telemetry unit. He underwent arthrocentesis of the right elbow yesterday by our team. This specimen was sent to the lab. Results are pending. Currently at bedside, the patient appears somewhat aphasic. He is not talking. He appears somewhat confused. History is limited today. OBJECTIVE: VITAL SIGNS: Show temperature of 99.7 at 3:58 a.m. Current vital signs 98.8, pulse of 95, respiratory rate of 17, O2 saturation 95% on room air, and blood pressure of 110/59. GENERAL: The patient is awake and looking about the room. As described above, he is somewhat aphasic today which is different in appearance than before. MUSCULOSKELETAL: Evaluation of his right elbow shows no change in exam. He holds the elbow flexed at approximately 90 degrees and has approximately 10 to 20 degrees of extension. Distal neurovascular status intact. LABORATORY DATA: Laboratory data shows that cultures are pending. Gram stain shows moderate wbc's without any organisms. ASSESSMENT AND PLAN: The patient with recurrent low-grade fevers, status post right elbow aspiration yesterday. We will await results of cultures to formulate a future plan. Job ID: [id number] MTDD
[2020-02-22] MEDS: HumaLOG 300 UNITS/3 ML VIAL SC PRN ×2 (18:28→21:40)
[2020-02-22] MEDS: Ubidecarenone 50 MG CAP PO SCH (20:15)
[2020-02-22] MEDS: Atorvastatin Calcium 40 MG TAB PO SCH (20:15)
[2020-02-22] MEDS: Senokot S 8.6-50 MG TAB PO SCH (20:15)
[2020-02-23] MEDS: cefTRIAXone\\ROCEPHIN 2 GM in Sodium Chloride 0.9% 100 ML IVPB SCH (01:37)
[2020-02-23] MEDS: Vancomycin 1 GM in Premix Bag 1 BAG IVPB SCH (02:07)
[2020-02-23] MEDS: Bisacodyl 10 MG SUPP PR SCH ×3 (04:34→21:00)
[2020-02-23 05:01] LABS: Anion Gap 13 mmol/L (10-20); BUN (Urea Nitrogen) 39 mg/dL (8.4-25.7); Calc. Creatinine Clearance 34 mL/min (70-130); Calcium 8.8 mg/dL (7.8-10.44); Carbon Dioxide 25 mmol/L (23-31); Chloride 103 mmol/L (98-107); Estimated GFR-MDRD 27; Glucose 141 mg/dL (80-115); Potassium 4.2 mmol/L (3.5-5.1); Sodium 137 mmol/L (136-145)
[2020-02-23 05:11] LABS: Eosinophils 3 % (0-10); Hemoglobin 6.7 g/dL (14.0-18.0); Lymphocytes 16 % (21-51); MDiff Complete? YES; Mean Corpuscular HGB CONC 34.4 g/dL (32.0-36.0); Mean Corpuscular Hemoglobin 28.5 pg (27.0-31.0); Mean Corpuscular Volume 82.9 fL (78.0-98.0); Monocytes 5 % (0-10); Neutrophil 76 % (42-75); Platelet Count 198 thou/uL (130-400); RBC Distribution Width 15.4 % (11.5-14.5); Red Blood Cell (RBC) Count 2.36 mill/uL (4.70-6.10); White Blood Cell (WBC) Count 7.3 thou/uL (4.8-10.8)
[2020-02-23] MEDS: HumaLOG 300 UNITS/3 ML VIAL SC PRN ×4 (05:43→22:01)
[2020-02-23] MEDS: Hydrochlorothiazide 25 MG TAB PO SCH (09:33)
[2020-02-23] MEDS: Clopidogrel Bisulfate 75 MG TAB PO SCH (09:33)
[2020-02-23] MEDS: Ferrous Sulfate 325 MG TAB PO SCH (09:33)
[2020-02-23] MEDS: Aspirin 81 mg Enteric Coated Tablet PO SCH (09:33)
[2020-02-23] MEDS: Carvedilol 25 MG TAB PO SCH ×2 (09:33→20:59)
[2020-02-23] MEDS: Gabapentin 400 MG CAP PO SCH ×2 (09:33→21:00)
[2020-02-23] MEDS: Senokot S 8.6-50 MG TAB PO SCH ×2 (09:34→20:59)
[2020-02-23] MEDS: Sodium Chloride 0.9% 1,000 ML IV SCH (09:35)
--- NOTE | 2020-02-23 09:53 | PRG ---
DATE OF SERVICE: 02/23/2020 SUBJECTIVE: The patient was seen again this morning during morning rounds. Labs have returned, which show gouty arthritis in the right elbow from the joint aspirate fluid. The patient reports continued difficulty moving his right arm. Otherwise, no new events. OBJECTIVE: VITAL SIGNS: Temperature 99.2, pulse of 88, respiratory rate of 16, O2 saturation of 97% on room air, and blood pressure of 131/64. GENERAL: The patient is awake and alert. He is more oriented this morning than yesterday. He does carry on a conversation with me today. He is in no apparent distress. EXTREMITIES: Right upper extremity evaluation shows the exam to be unchanged. He does continue to have some soft tissue swelling laterally on the elbow. He holds the arm in about 90 degrees of flexion and has about 20 to 30 degrees of motion in extension. Distal neurovascular status intact. LABORATORY DATA: Labs do show crystals in the joint aspirate. ASSESSMENT: Gouty arthritis, right elbow. PLAN: At this point, recommendations include colchicine, indomethacin, or steroids. According to the [facility] doctors, the patient is unable to take colchicine due to his Coreg. He has also got chronic kidney disease and indomethacin may not be a choice. Steroids would be the next option. We will continue to follow remotely on this patient. Job ID: [id number]
[2020-02-23] MEDS: Insulin Glargine 10 UNITS in Pre-Filled Syringe 1 EACH SC SCH (10:15)
[2020-02-23] MEDS ORDERED: Lisinopril 20 MG TAB PO SCH ×2 (10:21→10:30)
[2020-02-23] MEDS ORDERED: predniSONE 20 MG TAB PO SCH (11:30)
--- NOTE | 2020-02-23 12:22 | PDOC.HOSPP ---
- Subjective Encounter Date: 02/23/20 Encounter Time: 12:00 Subjective: f/u for gouty arthropathy of R elbow/knee. Aspirate showing urate crystals and no evidence of infection. Pt states he is feeling better overall. Small BM this am. - Objective Vital Signs & Weight: Vital Signs (12 hours) Temp Pulse Resp BP BP BP Pulse Ox 02/23/20 11:42 164/75 H 02/23/20 11:08 98.8 F 87 12 164/74 H 96 02/23/20 08:00 98.2 F 86 14 158/70 H 96 02/23/20 04:25 99.2 F 88 16 131/64 97 Weight Weight 203 lb I&O: 02/22/20 02/23/20 02/24/20 06:59 06:59 06:59 Intake Total 600 2420 0 Output Total 300 Balance 300 2420 0 Result Diagrams: 02/23/20 04:05 02/23/20 04:05 Additional Labs: Accuchecks 02/23/20 02/23/20 02/22/20 10:20 05:17 20:41 POC Glucose 216 H 166 H 248 H 02/22/20 16:40 POC Glucose 231 H Microbiology 02/21/20 03:10 Stool Stool Occult Blood ([facility]) - Final 02/18/20 00:40 Urine clean catch Urine Culture - Final Beta-hemolytic Streptococcus 02/21/20 13:26 Joint - Liquid Body Fluid Culture - Preliminary 02/18/20 23:43 Venous blood - Left Arm Blood Culture - Preliminary Specimen has been received and culture in progress. No Growth to date. 02/18/20 21:46 Venous blood - Left Hand Blood Culture - Preliminary NO GROWTH AT 48 HOURS Laboratory Tests 07/15/19 02/18/20 02/18/20 07:20 17:55 17:55 Hgb 8.4 L Creatinine 2.34 H Hemoglobin A1c 13.4 H C-Reactive Protein Procalcitonin Fluid Crystal ID Vancomycin Trough 02/18/20 02/19/20 02/19/20 21:46 04:37 04:37 Hgb 7.7 L Creatinine 2.46 H Hemoglobin A1c C-Reactive Protein Procalcitonin 0.56 Fluid Crystal ID Vancomycin Trough 02/19/20 02/19/20 02/20/20 04:37 07:31 04:03 Hgb Creatinine Hemoglobin A1c 10.9 H C-Reactive Protein 18.33 H Procalcitonin 0.60 Fluid Crystal ID Vancomycin Trough 02/20/20 02/20/20 02/21/20 04:03 04:03 01:26 Hgb 7.7 L Creatinine 2.44 H Hemoglobin A1c C-Reactive Protein Procalcitonin Fluid Crystal ID Vancomycin Trough 14.7 02/21/20 13:26 Hgb Creatinine Hemoglobin A1c C-Reactive Protein Procalcitonin Fluid Crystal ID Vancomycin Trough EKG Reviewed by me: Yes (Tele - SR) Hospitalist ROS - Medication Medications: Active Medications Generic Name Dose Route Start Last Admin Trade Name Freq PRN Reason Stop Dose Admin Acetaminophen 650 mg 02/18/20 20:42 02/22/20 17:23 Tylenol PO 650 mg Q4H PRN Administration Headache/Fever/Mild Pain (1-3) Aspirin 81 mg 02/19/20 09:00 02/23/20 09:33 Ecotrin PO 81 mg DAILY GRAYSON Administration Atorvastatin Calcium 80 mg 02/19/20 21:00 02/22/20 20:15 Lipitor PO 80 mg HS GRAYSNO Administration Bisacodyl 10 mg 02/22/20 12:30 02/23/20 04:34 Dulcolax MA Not Given Q8H GRAYSON Carvedilol 25 mg 02/19/20 09:00 02/23/20 09:33 Coreg PO 25 mg BID GRAYSON Administration Clopidogrel Bisulfate 75 mg 02/19/20 09:00 02/23/20 09:33 Plavix PO 75 mg DAILY GRAYSON Administration Coenzyme Q10 50 mg 02/19/20 21:00 02/22/20 20:15 Coenzyme Q10 PO 50 mg HS GRAYSON Administration Ferrous Sulfate 325 mg 02/19/20 08:00 02/23/20 09:33 Feosol PO 325 mg QAM-WM GRAYSON Administration Gabapentin 400 mg 02/20/20 09:00 02/23/20 09:33 Neurontin PO 400 mg BID GRAYSON Administration Glipizide 10 mg 02/19/20 09:00 02/23/20 09:33 Glucotrol Xl PO 10 mg DAILY GRAYSON Administration Hydralazine HCl 25 mg 02/19/20 09:00 02/22/20 20:15 Apresoline PO 25 mg BID GRAYSON Administration Hydrochlorothiazide 25 mg 02/19/20 09:00 02/23/20 09:33 Hydrochlorothiazide PO 25 mg DAILY GRAYSON Administration Insulin Glargine 10 units/ 0.1 mls @ 0 mls/hr 02/20/20 09:00 02/23/20 10:15 Miscellaneous Medication SC 0.1 mls QAM GRAYSON Administration Insulin Human Lispro 0 units 02/18/20 22:48 02/23/20 11:59 Humalog SC 3 unit .MILD SLIDING SCALE PRN Administration Mild Correctional Scale Insulin Human Lispro 0 units 02/18/20 22:48 02/22/20 21:40 Humalog SC 2 unit .BEDTIME SLIDING SC PRN Administration Bedtime Correctional Scale Prednisone 40 mg 02/23/20 11:30 02/23/20 11:44 Prednisone PO 02/23/20 14:00 40 mg NOW GRAYSON Administration Senna/Docusate Sodium 1 tab 02/22/20 21:00 02/23/20 09:34 Senokot S PO 1 tab BID GRAYSON Administration Sodium Chloride 10 ml 02/19/20 21:00 02/23/20 09:35 Flush - Normal Saline IVF Not Given Q12HR GRAYSON Sodium Chloride 10 ml 02/19/20 10:10 02/23/20 02:07 Flush - Normal Saline IVF 10 ml PRN PRN Administration Saline Flush - Exam General Appearance: NAD, awake alert Eye: PERRL, anicteric sclera ENT: normocephalic atraumatic, no oropharyngeal lesions Neck: supple, symmetric, no JVD, no thyromegaly, no lymphadenopathy Heart: RRR, no gallops, no rubs, normal peripheral pulses Heart - other findings: S1, S2 Respiratory: CTAB, no wheezes, no rales, no ronchi, normal chest expansion, no tachypnea Gastrointestinal: soft, non-tender, non-distended, normal bowel sounds, no palpable masses Extremities: no cyanosis, no clubbing Extremities - other findings: R knee with effusion Skin: normal turgor, no lesions Neurological: cranial nerve grossly intact, no new deficit Musculoskeletal: normal tone, generalized weakness Musculoskeletal - other findings: R elbow edema/warmth Psychiatric: normal affect, A&O x 3 Hosp A/P (1) Arthropathy Code(s): M12.9 - ARTHROPATHY, UNSPECIFIED Status: Acute Plan: Gouty arthropathy with urate crystals in joint aspirate, start Prednisone 40mg po daily, unable to start Colchicine/Indocin due to CKD and interaction with Coreg (2) Type 2 myocardial infarction Code(s): I21.A1 - MYOCARDIAL INFARCTION TYPE 2 Status: Acute Plan: Supportive mgmt, medical therapy, demand ischemia (3) LIZZIE (acute kidney injury) Code(s): N17.9 - ACUTE KIDNEY FAILURE, UNSPECIFIED Status: Acute Plan: Worsening renal function, IVF's, avoid nephrotoxic meds, consult Nephrology (4) Anemia in CKD (chronic kidney disease) Code(s): N18.9 - CHRONIC KIDNEY DISEASE, UNSPECIFIED; D63.1 - ANEMIA IN CHRONIC KIDNEY DISEASE Status: Chronic Plan: Transfuse 1u PRBC's today, serial H/H, stool guaiac negative x 1 (5) Diabetes mellitus Code(s): E11.9 - TYPE 2 DIABETES MELLITUS WITHOUT COMPLICATIONS Status: Chronic (6) HTN (hypertension) Code(s): I10 - ESSENTIAL (PRIMARY) HYPERTENSION Status: Chronic Qualifiers: Hypertension type: essential hypertension Qualified Code(s): I10 - Essential (primary) hypertension (7) Constipation Code(s): K59.00 - CONSTIPATION, UNSPECIFIED Status: Acute Qualifiers: Constipation type: slow transit constipation Qualified Code(s): K59.01 - Slow transit constipation Plan: Slow improvement, continue Senokot-S/Dulcolax supp - Plan PT/OT, 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
[2020-02-23] MEDS: hydrALAZINE 20 MG/ML VIAL SLOW IVP PRN ×2 (15:58→16:49)
[2020-02-23] MEDS: Atorvastatin Calcium 40 MG TAB PO SCH (20:59)
[2020-02-23] MEDS: Ubidecarenone 50 MG CAP PO SCH (20:59)
[2020-02-24 04:19] LABS: Platelet Count 232 thou/uL (130-400)
[2020-02-24] MEDS: Bisacodyl 10 MG SUPP PR SCH ×3 (04:34→20:08)
[2020-02-24 04:43] LABS: Anion Gap 14 mmol/L (10-20); BUN (Urea Nitrogen) 40 mg/dL (8.4-25.7); Calc. Creatinine Clearance 39 mL/min (70-130); Calcium 9.2 mg/dL (7.8-10.44); Carbon Dioxide 22 mmol/L (23-31); Chloride 102 mmol/L (98-107); Estimated GFR-MDRD 32; Glucose 356 mg/dL (80-115); Potassium 4.9 mmol/L (3.5-5.1); Sodium 133 mmol/L (136-145)
[2020-02-24] MEDS: HumaLOG 300 UNITS/3 ML VIAL SC PRN ×4 (06:13→21:26)
--- NOTE | 2020-02-24 07:36 | CON ---
DATE OF CONSULTATION: 02/23/2020 CONSULTING PHYSICIAN: Gianfranco Young MD. REQUESTING PHYSICIAN: [facility]. REASON FOR CONSULTATION: Acute on chronic kidney disease. IMPRESSION: 1. Acute on chronic kidney disease. This is likely due to the improvement in the hemodynamics of this patient with reduction in the blood pressure. You expect some reduction in renal perfusion, which in turn will show elevation in the creatinine. However, one cannot completely rule out the effect of combined use of LARISSA inhibitor and nonsteroidal anti-inflammatory drugs because of the potential interaction at the glomerular level. 2. Anemia. Possibly anemia of chronic disease, but cannot completely rule out anemia of iron deficiency. 3. Chronic kidney disease stage III at baseline with significant proteinuria, likely in the context of diabetic nephropathy. PLAN: 1. The patient is already receiving 1 unit of blood because of hemoglobin of 6.7. However, we will evaluate the iron profile of this patient and treat accordingly with parenteral iron plus or minus erythropoiesis stimulating agent. 2. Discontinue nonsteroidal anti-inflammatory drugs, ketorolac. 3. Discontinue IV fluids. 4. Renally dose all medications and adjust based on GFR and avoid potentially nephrotoxic agents. 5. No emergent indication for renal replacement therapy at this point. HISTORY: A 64-year-old gentleman who was brought in status post fall and noted to be severely hypertensive with blood pressure of 220/120. The patient was then admitted for hypertensive urgency. The patient, on presentation, was noted with a creatinine of about 2.4. However, over the course of hospitalization, the patient's creatinine has gone up to 2.9. As a result of this, decision was taken to involve Renal in the management of this case. PAST MEDICAL HISTORY: Significant for diabetes, hypertension, dyslipidemia, chronic kidney disease stage III, and CVA. MEDICATIONS: Reviewed and as documented on [facility]. ALLERGIES: SULFAMETHOXAZOLE. REVIEW OF SYSTEMS: As documented in the body of history. All other systems were reviewed and found not to be significantly related to presenting illness. SOCIAL HISTORY: No alcohol, no tobacco, no illicit drug use. Living at home with his sister. FAMILY HISTORY: Significant for the mother who had kidney problem. PHYSICAL EXAMINATION: GENERAL: The patient was found not to be in any obvious distress. Very jovial gentleman. VITAL SIGNS: Noted with the following vital signs: Afebrile, temperature 98.8, pulse 87, respiratory rate of 12, O2 saturation of 96% with blood pressure of 130/70 to 164/74. HEENT: Unremarkable. CARDIOVASCULAR SYSTEM: First and second heart sounds were heard. RESPIRATORY SYSTEM: Clear to auscultation. DIGESTIVE SYSTEM: Revealed a benign abdomen. EXTREMITIES: Showed some right knee swelling. SUMMARY: A 64-year-old gentleman who presented here, noted with hypertensive urgency and now experiencing rise in creatinine. Thank you for this consultation. We will follow with you. Job ID: [id number]
[2020-02-24] MEDS: Carvedilol 25 MG TAB PO SCH ×2 (08:04→20:07)
[2020-02-24] MEDS: Ferrous Sulfate 325 MG TAB PO SCH (08:05)
[2020-02-24] MEDS: Lisinopril 20 MG TAB PO SCH (08:05)
[2020-02-24] MEDS: predniSONE 20 MG TAB PO SCH (08:05)
[2020-02-24] MEDS: Insulin Glargine 10 UNITS in Pre-Filled Syringe 1 EACH SC SCH (08:06)
[2020-02-24] MEDS: Clopidogrel Bisulfate 75 MG TAB PO SCH (08:06)
[2020-02-24] MEDS: Senokot S 8.6-50 MG TAB PO SCH ×2 (08:06→20:07)
[2020-02-24] MEDS: Aspirin 81 mg Enteric Coated Tablet PO SCH (08:06)
[2020-02-24] MEDS: Hydrochlorothiazide 25 MG TAB PO SCH (08:06)
[2020-02-24] MEDS: Gabapentin 400 MG CAP PO SCH ×2 (08:06→20:06)
[2020-02-24] MEDS ORDERED: hydrALAZINE 25 MG TAB PO SCH ×2 (09:16→09:30)
--- NOTE | 2020-02-24 14:33 | PDOC.HOSPP ---
- Subjective Encounter Date: 02/24/20 Encounter Time: 14:25 Subjective: f/u for gouty arthropathy tx with Prednisone. Feels better overall and ambulated with PT today. Appetite ok. - Objective Vital Signs & Weight: Vital Signs (12 hours) Temp Pulse Resp BP BP BP Pulse Ox 02/24/20 11:10 97.5 F L 74 16 192/86 H 95 02/24/20 10:54 74 176/77 H 02/24/20 08:05 176/77 H 02/24/20 07:35 96 02/24/20 07:24 97.4 F L 74 14 176/76 H 96 02/24/20 03:15 97.7 F 72 18 166/72 H 95 Weight Weight 201 lb 12.8 oz I&O: 02/23/20 02/24/20 02/25/20 06:59 06:59 06:59 Intake Total 2420 720 Balance 2420 720 Result Diagrams: 02/24/20 04:09 02/24/20 04:09 Additional Labs: Accuchecks 02/24/20 02/24/20 02/23/20 10:43 06:03 22:00 POC Glucose 320 H 324 H 423 H 02/23/20 16:40 POC Glucose 276 H Microbiology 02/21/20 03:10 Stool Stool Occult Blood ([facility]) - Final 02/18/20 00:40 Urine clean catch Urine Culture - Final Beta-hemolytic Streptococcus 02/21/20 13:26 Joint - Liquid Body Fluid Culture - Preliminary 02/18/20 23:43 Venous blood - Left Arm Blood Culture - Preliminary Specimen has been received and culture in progress. No Growth to date. 02/18/20 21:46 Venous blood - Left Hand Blood Culture - Preliminary NO GROWTH AT 48 HOURS Laboratory Tests 07/15/19 02/18/20 02/18/20 07:20 17:55 17:55 Hgb 8.4 L Creatinine 2.34 H Hemoglobin A1c 13.4 H C-Reactive Protein Procalcitonin Fluid Crystal ID Vancomycin Trough 02/18/20 02/19/20 02/19/20 21:46 04:37 04:37 Hgb 7.7 L Creatinine 2.46 H Hemoglobin A1c C-Reactive Protein Procalcitonin 0.56 Fluid Crystal ID Vancomycin Trough 02/19/20 02/19/20 02/20/20 04:37 07:31 04:03 Hgb Creatinine Hemoglobin A1c 10.9 H C-Reactive Protein 18.33 H Procalcitonin 0.60 Fluid Crystal ID Vancomycin Trough 02/20/20 02/20/20 02/21/20 04:03 04:03 01:26 Hgb 7.7 L Creatinine 2.44 H Hemoglobin A1c C-Reactive Protein Procalcitonin Fluid Crystal ID Vancomycin Trough 14.7 02/21/20 13:26 Hgb Creatinine Hemoglobin A1c C-Reactive Protein Procalcitonin Fluid Crystal ID Vancomycin Trough EKG Reviewed by me: Yes (Tele - SR) Hospitalist ROS - Medication Medications: Active Medications Generic Name Dose Route Start Last Admin Trade Name Freq PRN Reason Stop Dose Admin Acetaminophen 650 mg 02/18/20 20:42 02/22/20 17:23 Tylenol PO 650 mg Q4H PRN Administration Headache/Fever/Mild Pain (1-3) Aspirin 81 mg 02/19/20 09:00 02/24/20 08:06 Ecotrin PO 81 mg DAILY GRAYSON Administration Atorvastatin Calcium 80 mg 02/19/20 21:00 02/23/20 20:59 Lipitor PO 80 mg HS GRAYSON Administration Bisacodyl 10 mg 02/22/20 12:30 02/24/20 12:53 Dulcolax IA 10 mg Q8H GRAYSON Administration Carvedilol 25 mg 02/19/20 09:00 02/24/20 08:04 Coreg PO 25 mg BID GRAYSON Administration Clopidogrel Bisulfate 75 mg 02/19/20 09:00 02/24/20 08:06 Plavix PO 75 mg DAILY GRAYSON Administration Coenzyme Q10 50 mg 02/19/20 21:00 02/23/20 20:59 Coenzyme Q10 PO 50 mg HS GRAYSON Administration Ferrous Sulfate 325 mg 02/19/20 08:00 02/24/20 08:05 Feosol PO 325 mg QAM-WM GRAYSON Administration Gabapentin 400 mg 02/20/20 09:00 02/24/20 08:06 Neurontin PO 400 mg BID GRAYSON Administration Glipizide 10 mg 02/19/20 09:00 02/24/20 08:06 Glucotrol Xl PO 10 mg DAILY GRAYSON Administration Hydralazine HCl 10 mg 02/18/20 21:24 02/23/20 16:49 Apresoline SLOW IVP 10 mg Q4H PRN Administration Hypertension Hydrochlorothiazide 25 mg 02/19/20 09:00 02/24/20 08:06 Hydrochlorothiazide PO 25 mg DAILY GRAYSON Administration Insulin Glargine 10 units/ 0.1 mls @ 0 mls/hr 02/20/20 09:00 02/24/20 08:06 Miscellaneous Medication SC 0.1 mls QAM GRAYSON Administration Insulin Human Lispro 0 units 02/18/20 22:48 02/24/20 06:13 Humalog SC 5 unit .MILD SLIDING SCALE PRN Administration Mild Correctional Scale Insulin Human Lispro 0 units 02/18/20 22:48 02/24/20 11:04 Humalog SC 4 unit .BEDTIME SLIDING SC PRN Administration Bedtime Correctional Scale Lisinopril 20 mg 02/24/20 09:00 02/24/20 08:05 Zestril PO 20 mg DAILY GRAYSON Administration Prednisone 40 mg 02/24/20 08:00 02/24/20 08:05 Prednisone PO 40 mg QAM-WM GRAYSON Administration Senna/Docusate Sodium 1 tab 02/22/20 21:00 02/24/20 08:06 Senokot S PO 1 tab BID GRAYSON Administration Sodium Chloride 10 ml 02/19/20 21:00 02/24/20 08:07 Flush - Normal Saline IVF 10 ml Q12HR GRAYSON Administration Sodium Chloride 10 ml 02/19/20 10:10 02/23/20 02:07 Flush - Normal Saline IVF 10 ml PRN PRN Administration Saline Flush - Exam General Appearance: NAD, awake alert Eye: PERRL, anicteric sclera ENT: normocephalic atraumatic, no oropharyngeal lesions Neck: supple, symmetric, no JVD, no thyromegaly, no lymphadenopathy Heart: RRR, no murmur, no gallops, no rubs, normal peripheral pulses Heart - other findings: S1, S2 Respiratory: CTAB, no wheezes, no rales, no ronchi, normal chest expansion, no tachypnea Gastrointestinal: soft, non-tender, non-distended, normal bowel sounds, no palpable masses Extremities: no cyanosis, no clubbing Extremities - other findings: R knee with effusion and TTP Skin: normal turgor, no lesions Neurological: cranial nerve grossly intact, no new deficit Musculoskeletal: normal tone, normal strength, generalized weakness Musculoskeletal - other findings: R elbow with edema/TTP, arm sling in place Psychiatric: normal affect, A&O x 3 Hosp A/P (1) Arthropathy Code(s): M12.9 - ARTHROPATHY, UNSPECIFIED Status: Acute Plan: + gouty arthropathy, continue Prednisone, ROM exercises (2) Type 2 myocardial infarction Code(s): I21.A1 - MYOCARDIAL INFARCTION TYPE 2 Status: Acute (3) LIZZIE (acute kidney injury) Code(s): N17.9 - ACUTE KIDNEY FAILURE, UNSPECIFIED Status: Acute Plan: Mild improvement, avoid nephrotoxic meds and monitor for recovery (4) Anemia in CKD (chronic kidney disease) Code(s): N18.9 - CHRONIC KIDNEY DISEASE, UNSPECIFIED; D63.1 - ANEMIA IN CHRONIC KIDNEY DISEASE Status: Chronic Plan: s/p 1u PRBC's, serial H/H, Iron/Retic/Ferritin/Epo level (5) Diabetes mellitus Code(s): E11.9 - TYPE 2 DIABETES MELLITUS WITHOUT COMPLICATIONS Status: Chronic (6) HTN (hypertension) Code(s): I10 - ESSENTIAL (PRIMARY) HYPERTENSION Status: Chronic Qualifiers: Hypertension type: essential hypertension Qualified Code(s): I10 - Essential (primary) hypertension (7) Constipation Code(s): K59.00 - CONSTIPATION, UNSPECIFIED Status: Acute Qualifiers: Constipation type: slow transit constipation Qualified Code(s): K59.01 - Slow transit constipation Plan: Resolving with bowel regimen - Plan PT/OT, out of bed/ambulate, DVT proph w/SCDs Stable currently Start Prednisone 40mg daily s/p 1u PRBC's D/C Rocephin/Vancomycin Cardiology consult appreciated Consult Nephrology due to LIZZIE/CKD Saline lock IVF's Bowel regimen AM lab: BMP, H/H, Iron/Retic/Ferritin/Erythropoetin level
[2020-02-24] MEDS: hydrALAZINE 20 MG/ML VIAL SLOW IVP PRN (17:55)
[2020-02-24] MEDS ORDERED: Minoxidil 2.5 MG TAB PO SCH (19:00)
--- NOTE | 2020-02-24 19:13 | PRG ---
DATE OF SERVICE: 02/24/2020 SUBJECTIVE: The patient is seen and examined, noted with the following vital signs. OBJECTIVE: VITAL SIGNS: Afebrile, temperature 96.6, pulse 82, blood pressure 192/86, respiratory rate of 16, and O2 saturations of 96%. HEENT: Unremarkable. CARDIOVASCULAR: First and second heart sounds were heard. RESPIRATORY: Clear to auscultation. DIGESTIVE: Revealed a benign abdomen. EXTREMITIES: No peripheral edema. SKIN: No new gross rash. LYMPHATICS: No peripheral lymphadenopathy. LABORATORY INVESTIGATION: Showed hemoglobin of 8.0. Chemistry showed a creatinine down to 2.45, BUN of 40, sodium of 133, blood sugar of 416. IMPRESSION: 1. Acute on chronic kidney disease, seems to show some marginal improvement. 2. Hypertension, suboptimally controlled. 3. Anemia, query cause. PLAN: 1. The patient's antihypertensive medication to be adjusted to optimize hemodynamics. 2. Follow up on the iron studies as well as urinalysis for degree of proteinuria. 3. Blood sugar control needs to be optimized. 4. Further management to be dependent on the clinical course. Job ID: [id number]
[2020-02-24] MEDS: hydrALAZINE 25 MG TAB PO SCH (20:06)
[2020-02-24] MEDS: Atorvastatin Calcium 40 MG TAB PO SCH (20:07)
[2020-02-24] MEDS: Ubidecarenone 50 MG CAP PO SCH (20:07)
[2020-02-25] MEDS: Bisacodyl 10 MG SUPP PR SCH ×3 (04:38→21:18)
[2020-02-25 04:45] LABS: Reticulocyte Count 1.2 % (0.5-1.5)
[2020-02-25 04:50] LABS: Hemoglobin 8.4 g/dL (14.0-18.0); Platelet Count 310 thou/uL (130-400)
[2020-02-25 05:10] LABS: Anion Gap 13 mmol/L (10-20); BUN (Urea Nitrogen) 51 mg/dL (8.4-25.7); Calc. Creatinine Clearance 37 mL/min (70-130); Calcium 9.5 mg/dL (7.8-10.44); Carbon Dioxide 23 mmol/L (23-31); Chloride 105 mmol/L (98-107); Estimated GFR-MDRD 32; Glucose 180 mg/dL (80-115); Iron 46 ug/dL (65-175); Potassium 4.4 mmol/L (3.5-5.1); Sodium 137 mmol/L (136-145)
[2020-02-25] MEDS ORDERED: Iron, Sodium Ferric Gluconate 250 MG in Sodium Chloride 0.9% 100 ML IVPB SCH (07:45)
[2020-02-25] MEDS: Ferrous Sulfate 325 MG TAB PO SCH (08:13)
[2020-02-25] MEDS: hydrALAZINE 25 MG TAB PO SCH (08:13)
[2020-02-25] MEDS: Hydrochlorothiazide 25 MG TAB PO SCH (08:13)
[2020-02-25] MEDS: Senokot S 8.6-50 MG TAB PO SCH ×2 (08:13→21:41)
[2020-02-25] MEDS: Aspirin 81 mg Enteric Coated Tablet PO SCH (08:13)
[2020-02-25] MEDS: Gabapentin 400 MG CAP PO SCH ×2 (08:13→21:41)
[2020-02-25] MEDS: Clopidogrel Bisulfate 75 MG TAB PO SCH (08:14)
[2020-02-25] MEDS: predniSONE 20 MG TAB PO SCH (08:14)
[2020-02-25] MEDS: Lisinopril 20 MG TAB PO SCH (08:14)
[2020-02-25] MEDS: Carvedilol 25 MG TAB PO SCH ×2 (08:15→21:41)
[2020-02-25] MEDS: Minoxidil 10 MG TAB PO SCH (08:41)
[2020-02-25] MEDS ORDERED: Ergocalciferol 1.25 MG(50,000 UNITS) CAP PO SCH (09:00)
[2020-02-25] MEDS: Insulin Glargine 10 UNITS in Pre-Filled Syringe 1 EACH SC SCH (10:03)
[2020-02-25] MEDS ORDERED: Sodium Chloride 0.9% 500 ML IVPB SCH ×2 (12:00→13:30)
[2020-02-25] MEDS ORDERED: Lisinopril 20 MG TAB PO SCH (12:22)
[2020-02-25] MEDS ORDERED: Lisinopril 10 MG TAB PO SCH (12:30)
--- NOTE | 2020-02-25 12:59 | PDOC.HOSPP ---
- Subjective Encounter Date: 02/25/20 Encounter Time: 12:25 Subjective: f/u for LIZZIE/CKD/gouty arthropathy. Nursing report pt hypotensive after receiving all of BP meds this am. Tx with IVF NS bolus and holding Hydralazine. - Objective Vital Signs & Weight: Vital Signs (12 hours) Temp Pulse Resp BP BP BP BP 02/25/20 10:50 97.8 F 82 14 77/47 L 02/25/20 08:14 133/64 02/25/20 08:13 77 133/64 02/25/20 08:00 02/25/20 07:22 97.6 F 77 13 133/64 02/25/20 03:25 97.9 F 79 20 141/65 H Pulse Ox 02/25/20 10:50 97 02/25/20 08:14 02/25/20 08:13 02/25/20 08:00 97 02/25/20 07:22 97 02/25/20 03:25 97 Weight Weight 194 lb 4.8 oz I&O: 02/24/20 02/25/20 02/26/20 06:59 06:59 06:59 Intake Total 720 370 240 Balance 720 370 240 Result Diagrams: 02/25/20 04:33 02/25/20 04:33 Additional Labs: Accuchecks 02/25/20 02/25/20 02/24/20 10:28 05:54 20:33 POC Glucose 324 H 167 H 358 H 02/24/20 16:41 POC Glucose 416 H Microbiology 02/21/20 03:10 Stool Stool Occult Blood ([facility]) - Final 02/18/20 00:40 Urine clean catch Urine Culture - Final Beta-hemolytic Streptococcus 02/21/20 13:26 Joint - Liquid Body Fluid Culture - Preliminary 02/18/20 23:43 Venous blood - Left Arm Blood Culture - Preliminary Specimen has been received and culture in progress. No Growth to date. 02/18/20 21:46 Venous blood - Left Hand Blood Culture - Preliminary NO GROWTH AT 48 HOURS Laboratory Tests 07/15/19 02/18/20 02/18/20 07:20 17:55 17:55 Hgb 8.4 L Retic Count BUN Creatinine 2.34 H Hemoglobin A1c 13.4 H Iron Ferritin C-Reactive Protein Procalcitonin Fluid Crystal ID Vancomycin Trough 0702/19/20 02/19/20 21:46 04:37 04:37 Hgb 7.7 L Retic Count BUN Creatinine 2.46 H Hemoglobin A1c Iron Ferritin C-Reactive Protein Procalcitonin 0.56 Fluid Crystal ID Vancomycin Trough 02/19/20 02/19/20 02/20/20 04:37 07:31 04:03 Hgb Retic Count BUN Creatinine Hemoglobin A1c 10.9 H Iron Ferritin C-Reactive Protein 18.33 H Procalcitonin 0.60 Fluid Crystal ID Vancomycin Trough 02/20/20 02/20/20 02/21/20 04:03 04:03 01:26 Hgb 7.7 L Retic Count BUN Creatinine 2.44 H Hemoglobin A1c Iron Ferritin C-Reactive Protein Procalcitonin Fluid Crystal ID Vancomycin Trough 14.7 02/21/20 02/24/20 02/25/20 13:26 04:09 04:33 Hgb Retic Count BUN 40 H Creatinine 2.45 H Hemoglobin A1c Iron 46 L Ferritin C-Reactive Protein Procalcitonin Fluid Crystal ID Vancomycin Trough 02/25/20 02/25/20 04:33 04:33 Hgb Retic Count 1.2 BUN Creatinine Hemoglobin A1c Iron Ferritin 1235.87 H C-Reactive Protein Procalcitonin Fluid Crystal ID Vancomycin Trough EKG Reviewed by me: Yes (Tele - SR) Hospitalist ROS - Medication Medications: Active Medications Generic Name Dose Route Start Last Admin Trade Name Freq PRN Reason Stop Dose Admin Acetaminophen 650 mg 02/18/20 20:42 02/22/20 17:23 Tylenol PO 650 mg Q4H PRN Administration Headache/Fever/Mild Pain (1-3) Aspirin 81 mg 02/19/20 09:00 02/25/20 08:13 Ecotrin PO 81 mg DAILY GRAYSON Administration Atorvastatin Calcium 80 mg 02/19/20 21:00 02/24/20 20:07 Lipitor PO 80 mg HS GRAYSON Administration Bisacodyl 10 mg 02/22/20 12:30 02/25/20 12:01 Dulcolax AR Not Given Q8H GRAYSON Carvedilol 25 mg 02/19/20 09:00 02/25/20 08:15 Coreg PO 25 mg BID GRAYSON Administration Clopidogrel Bisulfate 75 mg 02/19/20 09:00 02/25/20 08:14 Plavix PO 75 mg DAILY GRAYSON Administration Coenzyme Q10 50 mg 02/19/20 21:00 02/24/20 20:07 Coenzyme Q10 PO 50 mg HS GRAYSON Administration Ergocalciferol 1.25 mg 02/25/20 09:00 02/25/20 08:41 Drisdol PO 1.25 mg Q7DAYS GRAYSON Administration Ferrous Sulfate 325 mg 02/19/20 08:00 02/25/20 08:13 Feosol PO 325 mg QAM-WM GRAYSON Administration Gabapentin 400 mg 02/20/20 09:00 02/25/20 08:13 Neurontin PO 400 mg BID GRAYSON Administration Glipizide 10 mg 02/19/20 09:00 02/25/20 08:14 Glucotrol Xl PO 10 mg DAILY GRAYSON Administration Hydralazine HCl 10 mg 02/18/20 21:24 02/24/20 17:55 Apresoline SLOW IVP 10 mg Q4H PRN Administration Hypertension Hydrochlorothiazide 25 mg 02/19/20 09:00 02/25/20 08:13 Hydrochlorothiazide PO 25 mg DAILY GRAYSON Administration Insulin Glargine 10 units/ 0.1 mls @ 0 mls/hr 02/20/20 09:00 02/25/20 10:03 Miscellaneous Medication SC 0.1 mls QAM GRAYSON Administration Sodium Chloride 500 mls @ 0 mls/hr 02/25/20 12:00 02/25/20 12:00 Normal Saline 0.9% IVPB 02/25/20 14:00 500 mls NOW GRAYSON Administration As Directed Insulin Human Lispro 0 units 02/18/20 22:48 02/24/20 17:57 Humalog SC 6 unit .MILD SLIDING SCALE PRN Administration Mild Correctional Scale Insulin Human Lispro 0 units 02/18/20 22:48 02/24/20 21:26 Humalog SC 5 unit .BEDTIME SLIDING SC PRN Administration Bedtime Correctional Scale Minoxidil 10 mg 02/25/20 09:00 02/25/20 08:41 Minoxidil PO 10 mg DAILY GRAYSON Administration Prednisone 40 mg 02/24/20 08:00 02/25/20 08:14 Prednisone PO 40 mg QAM-WM GRAYSON Administration Senna/Docusate Sodium 1 tab 02/22/20 21:00 02/25/20 08:13 Senokot S PO 1 tab BID GRAYSON Administration Sodium Chloride 10 ml 02/19/20 21:00 02/25/20 08:16 Flush - Normal Saline IVF 10 ml Q12HR GRAYSON Administration Sodium Chloride 10 ml 02/19/20 10:10 02/23/20 02:07 Flush - Normal Saline IVF 10 ml PRN PRN Administration Saline Flush - Exam General - other findings: lethargic, opens eyes slowly to name Eye: PERRL, anicteric sclera ENT: normocephalic atraumatic, no oropharyngeal lesions Neck: supple, symmetric, no JVD, no thyromegaly, no lymphadenopathy Heart: RRR, no gallops, no rubs, normal peripheral pulses Heart - other findings: S1, S2 Respiratory: CTAB, no wheezes, no rales, no ronchi, normal chest expansion, no tachypnea Gastrointestinal: soft, non-tender, non-distended, normal bowel sounds, no palpable masses Extremities: no cyanosis, no clubbing Extremities - other findings: R elbow edema improved, mild TTP Skin: normal turgor Musculoskeletal: generalized weakness Musculoskeletal - other findings: R knee with peripatellar effusion Psychiatric: somnolent, lethargic Hosp A/P (1) Hypotension Status: Acute Plan: Iatrogenic hypotension, hold Hydralazine, IVF NS bolus x 1L now, serial BP monitoring, titrate BP regimen (2) Arthropathy Code(s): M12.9 - ARTHROPATHY, UNSPECIFIED Status: Acute Plan: Continue Prednisone, gentle ROM exercises (3) Type 2 myocardial infarction Code(s): I21.A1 - MYOCARDIAL INFARCTION TYPE 2 Status: Acute (4) LIZZIE (acute kidney injury) Code(s): N17.9 - ACUTE KIDNEY FAILURE, UNSPECIFIED Status: Acute (5) Anemia in CKD (chronic kidney disease) Code(s): N18.9 - CHRONIC KIDNEY DISEASE, UNSPECIFIED; D63.1 - ANEMIA IN CHRONIC KIDNEY DISEASE Status: Chronic Plan: IV Iron infusion, FeSO4 for d/c, serial H/H, s/p 1u PRBC's (6) Diabetes mellitus Code(s): E11.9 - TYPE 2 DIABETES MELLITUS WITHOUT COMPLICATIONS Status: Chronic (7) HTN (hypertension) Code(s): I10 - ESSENTIAL (PRIMARY) HYPERTENSION Status: Chronic Qualifiers: Hypertension type: essential hypertension Qualified Code(s): I10 - Essential (primary) hypertension Plan: Hypotension currently, see #1 (8) Constipation Code(s): K59.00 - CONSTIPATION, UNSPECIFIED Status: Acute Qualifiers: Constipation type: slow transit constipation Qualified Code(s): K59.01 - Slow transit constipation - Plan PT/OT, perinatal social worker, out of bed/ambulate, DVT proph w/SCDs Stable currently Start Prednisone 40mg daily s/p 1u PRBC's IV Iron infusion today Hold Hydralazine D/C Rocephin/Vancomycin Cardiology consult appreciated Consult Nephrology due to LIZZIE/CKD IV NS bolus x 1L now Bowel regimen AM lab: BMP, H/H, Erythropoeitin
[2020-02-25] MEDS: HumaLOG 300 UNITS/3 ML VIAL SC PRN ×3 (13:05→21:50)
[2020-02-25 13:40] VITALS: BMI 30.4
[2020-02-25] MEDS: Atorvastatin Calcium 40 MG TAB PO SCH (21:41)
[2020-02-25] MEDS: Ubidecarenone 50 MG CAP PO SCH (21:41)
[2020-02-26] MEDS: Bisacodyl 10 MG SUPP PR SCH ×3 (04:04→20:24)
[2020-02-26 04:40] LABS: Platelet Count 347 thou/uL (130-400)
--- NOTE | 2020-02-26 04:43 | PDOC.EVN ---
Event Note - Event Note Event Note: Patient with lower extremity leg pain, no calf swelling but does have tenderness. Recent fall. Most pain in right knee, states it is worse when he rests his left leg on his right leg while laying on his right side. Advised not to do so. Pain with ROM and to touch. Notable swelling in right knee without any warmth/erythema. MRI right knee ordered, xray done a few days ago unremarkable. Patient reportedly able to walk with PT/OT yesterday without difficulty. Will obtain venous doppler as well. Will use lidocaine patch for right knee pain, as poor kidney function and BP on low side. Patient refusing tylenol for 6/10 right knee pain.
[2020-02-26 05:05] LABS: Anion Gap 14 mmol/L (10-20); BUN (Urea Nitrogen) 78 mg/dL (8.4-25.7); Calc. Creatinine Clearance 27 mL/min (70-130); Calcium 8.5 mg/dL (7.8-10.44); Carbon Dioxide 19 mmol/L (23-31); Chloride 101 mmol/L (98-107); Estimated GFR-MDRD 21; Glucose 244 mg/dL (80-115); Potassium 4.4 mmol/L (3.5-5.1); Sodium 130 mmol/L (136-145)
[2020-02-26] MEDS: Lidocaine 5% Patch TD SCH (07:27)
[2020-02-26] MEDS ORDERED: Lisinopril 10 MG TAB PO SCH (09:00)
--- NOTE | 2020-02-26 09:53 | ULT ---
EXAM: Bilateral lower extremity venous Doppler US HISTORY: bilateral lower extremity pain FINDINGS: Grayscale, color-flow, Doppler evaluation, spectral analysis of the bilateral lower extremities venou s structures is performed with 2-D imaging. The bilateral common femoral, superficial femoral, popliteal, posterior tibial, proximal greater saphenous and profunda femoral veins are imaged. There is normal luminal compressibility, flow, and augmentation in the visualized deep venous structu res of the bilateral lower extremities. IMPRESSION: No evidence of a deep vein thrombosis in either lower extremity.
[2020-02-26] MEDS: Sodium Chloride 0.9% 1,000 ML IV SCH ×2 (10:15→21:44)
[2020-02-26] MEDS: predniSONE 20 MG TAB PO SCH (10:16)
[2020-02-26] MEDS: Clopidogrel Bisulfate 75 MG TAB PO SCH (10:17)
[2020-02-26] MEDS: Gabapentin 400 MG CAP PO SCH ×2 (10:17→20:28)
[2020-02-26] MEDS: Carvedilol 25 MG TAB PO SCH ×2 (10:17→20:28)
--- NOTE | 2020-02-26 10:21 | PDOC.HOSPP ---
- Subjective Encounter Date: 02/26/20 Encounter Time: 10:15 Subjective: f/u for iatrogenic hypotension improved with modification to BP regimen. Pt more alert and feels good this am. R knee and elbow less painful and able to move easier. - Objective Vital Signs & Weight: Vital Signs (12 hours) Temp Pulse Resp BP Pulse Ox 02/26/20 04:30 98.3 F 85 16 115/55 L 93 L 02/26/20 00:30 97.6 F 72 16 103/54 L 95 Weight Admit Weight 203 lb 3.2 oz Weight 198 lb 9.6 oz I&O: 02/25/20 02/26/20 02/27/20 06:59 06:59 06:59 Intake Total 370 1979 Balance 370 1979 Result Diagrams: 02/26/20 03:40 02/26/20 03:40 Additional Labs: Accuchecks 02/26/20 02/25/20 02/25/20 06:40 20:36 16:59 POC Glucose 214 H 437 H 387 H 02/25/20 10:28 POC Glucose 324 H Microbiology 02/21/20 03:10 Stool Stool Occult Blood ([facility]) - Final 02/18/20 00:40 Urine clean catch Urine Culture - Final Beta-hemolytic Streptococcus 02/21/20 13:26 Joint - Liquid Body Fluid Culture - Preliminary 02/18/20 23:43 Venous blood - Left Arm Blood Culture - Preliminary Specimen has been received and culture in progress. No Growth to date. 02/18/20 21:46 Venous blood - Left Hand Blood Culture - Preliminary NO GROWTH AT 48 HOURS Laboratory Tests 07/15/19 02/18/20 02/18/20 07:20 17:55 17:55 Hgb 8.4 L Retic Count BUN Creatinine 2.34 H Hemoglobin A1c 13.4 H Iron Ferritin C-Reactive Protein Procalcitonin Fluid Crystal ID Vancomycin Trough 02/18/20 02/19/20 02/19/20 21:46 04:37 04:37 Hgb 7.7 L Retic Count BUN Creatinine 2.46 H Hemoglobin A1c Iron Ferritin C-Reactive Protein Procalcitonin 0.56 Fluid Crystal ID Vancomycin Trough 02/19/20 02/19/20 02/20/20 04:37 07:31 04:03 Hgb Retic Count BUN Creatinine Hemoglobin A1c 10.9 H Iron Ferritin C-Reactive Protein 18.33 H Procalcitonin 0.60 Fluid Crystal ID Vancomycin Trough 02/20/20 02/20/20 02/21/20 04:03 04:03 01:26 Hgb 7.7 L Retic Count BUN Creatinine 2.44 H Hemoglobin A1c Iron Ferritin C-Reactive Protein Procalcitonin Fluid Crystal ID Vancomycin Trough 14.7 02/21/20 02/24/20 02/25/20 13:26 04:09 04:33 Hgb Retic Count BUN 40 H Creatinine 2.45 H Hemoglobin A1c Iron 46 L Ferritin C-Reactive Protein Procalcitonin Fluid Crystal ID Vancomycin Trough 02/25/20 02/25/20 04:33 04:33 Hgb Retic Count 1.2 BUN Creatinine Hemoglobin A1c Iron Ferritin 1235.87 H C-Reactive Protein Procalcitonin Fluid Crystal ID Vancomycin Trough EKG Reviewed by me: Yes (Tele - SR) Hospitalist ROS - Medication Medications: Active Medications Generic Name Dose Route Start Last Admin Trade Name Freq PRN Reason Stop Dose Admin Acetaminophen 650 mg 02/18/20 20:42 02/22/20 17:23 Tylenol PO 650 mg Q4H PRN Administration Headache/Fever/Mild Pain (1-3) Aspirin 81 mg 02/19/20 09:00 02/25/20 08:13 Ecotrin PO 81 mg DAILY GRAYSON Administration Atorvastatin Calcium 80 mg 02/19/20 21:00 02/25/20 21:41 Lipitor PO 80 mg HS GRAYSON Administration Bisacodyl 10 mg 02/22/20 12:30 02/26/20 04:04 Dulcolax NV Not Given Q8H GRAYSON Carvedilol 25 mg 02/19/20 09:00 02/26/20 10:17 Coreg PO 25 mg BID GRAYSON Administration Clopidogrel Bisulfate 75 mg 02/19/20 09:00 02/26/20 10:17 Plavix PO 75 mg DAILY GRAYSON Administration Coenzyme Q10 50 mg 02/19/20 21:00 02/25/20 21:41 Coenzyme Q10 PO 50 mg HS GRAYSON Administration Ergocalciferol 1.25 mg 02/25/20 09:00 02/25/20 08:41 Drisdol PO 1.25 mg Q7DAYS GRAYSON Administration Ferrous Sulfate 325 mg 02/19/20 08:00 02/25/20 08:13 Feosol PO 325 mg QAM-WM GRAYSON Administration Gabapentin 400 mg 02/20/20 09:00 02/26/20 10:17 Neurontin PO 400 mg BID GRAYSON Administration Glipizide 10 mg 02/19/20 09:00 02/26/20 10:18 Glucotrol Xl PO 10 mg DAILY GRAYSON Administration Hydralazine HCl 10 mg 02/18/20 21:24 02/24/20 17:55 Apresoline SLOW IVP 10 mg Q4H PRN Administration Hypertension Insulin Glargine 10 units/ 0.1 mls @ 0 mls/hr 02/20/20 09:00 02/25/20 10:03 Miscellaneous Medication SC 0.1 mls QAM GRAYSON Administration Sodium Chloride 1,000 mls @ 75 mls/hr 02/26/20 08:45 02/26/20 10:15 Normal Saline 0.9% IV 1,000 mls .[id number] GRAYSON Administration Insulin Human Lispro 0 units 02/18/20 22:48 02/25/20 21:50 Humalog SC 6 unit .MILD SLIDING SCALE PRN Administration Mild Correctional Scale Insulin Human Lispro 0 units 02/18/20 22:48 02/24/20 21:26 Humalog SC 5 unit .BEDTIME SLIDING SC PRN Administration Bedtime Correctional Scale Lidocaine 1 patch 02/26/20 09:00 02/26/20 07:27 Lidoderm 5% Patch TD 1 patch DAILY GRAYSON Administration Minoxidil 10 mg 02/25/20 09:00 02/25/20 08:41 Minoxidil PO 10 mg DAILY GRAYSON Administration Prednisone 40 mg 02/24/20 08:00 02/26/20 10:16 Prednisone PO 40 mg QAM-WM GRAYSON Administration Senna/Docusate Sodium 1 tab 02/22/20 21:00 02/25/20 21:41 Senokot S PO Not Given BID GRAYSON Sodium Chloride 10 ml 02/19/20 21:00 02/25/20 21:41 Flush - Normal Saline IVF 10 ml Q12HR GRAYSON Administration Sodium Chloride 10 ml 02/19/20 10:10 02/23/20 02:07 Flush - Normal Saline IVF 10 ml PRN PRN Administration Saline Flush - Exam General Appearance: NAD, awake alert Eye: PERRL, anicteric sclera ENT: normocephalic atraumatic, no oropharyngeal lesions ENT - other findings: poor dentition Neck: supple, symmetric, no JVD, no thyromegaly Heart: RRR, no gallops, no rubs, normal peripheral pulses Heart - other findings: S1, S2 Respiratory: CTAB, no wheezes, no rales, no ronchi, normal chest expansion Gastrointestinal: soft, non-tender, non-distended, normal bowel sounds, no palpable masses Extremities: no cyanosis, no clubbing Extremities - other findings: minimal edema of R knee/elbow Skin: normal turgor Neurological: cranial nerve grossly intact, no new deficit Musculoskeletal: normal tone, normal strength Psychiatric: normal affect, A&O x 3 Hosp A/P (1) Hypotension Status: Acute Plan: Improving, continue adjustment to BP regimen, start NS @ 75ml/h (2) Arthropathy Code(s): M12.9 - ARTHROPATHY, UNSPECIFIED Status: Acute Plan: Gouty arthropathy improved with Prednisone (3) Type 2 myocardial infarction Code(s): I21.A1 - MYOCARDIAL INFARCTION TYPE 2 Status: Acute (4) LIZZIE (acute kidney injury) Code(s): N17.9 - ACUTE KIDNEY FAILURE, UNSPECIFIED Status: Acute Plan: Iatrogenic LIZZIE due to hypotension and hypo-perfusion, continue low-volume IVF's , avoid nephrotoxic meds and limit contrast (5) Anemia in CKD (chronic kidney disease) Code(s): N18.9 - CHRONIC KIDNEY DISEASE, UNSPECIFIED; D63.1 - ANEMIA IN CHRONIC KIDNEY DISEASE Status: Chronic (6) Diabetes mellitus Code(s): E11.9 - TYPE 2 DIABETES MELLITUS WITHOUT COMPLICATIONS Status: Chronic (7) HTN (hypertension) Code(s): I10 - ESSENTIAL (PRIMARY) HYPERTENSION Status: Chronic Qualifiers: Hypertension type: essential hypertension Qualified Code(s): I10 - Essential (primary) hypertension (8) Constipation Code(s): K59.00 - CONSTIPATION, UNSPECIFIED Status: Acute Qualifiers: Constipation type: slow transit constipation Qualified Code(s): K59.01 - Slow transit constipation - Plan PT/OT, pediatric social worker, out of bed/ambulate, DVT proph w/SCDs Stable currently Start Prednisone 40mg daily s/p 1u PRBC's IV Iron infusion today Hold Hydralazine/Minoxidil D/C Rocephin/Vancomycin Cardiology consult appreciated Consult Nephrology due to LIZZIE/CKD IV NS @ 75ml/h Bowel regimen AM lab: BMP, H/H
[2020-02-26] MEDS: Aspirin 81 mg Enteric Coated Tablet PO SCH (10:30)
[2020-02-26] MEDS: Ferrous Sulfate 325 MG TAB PO SCH (10:31)
[2020-02-26] MEDS: Insulin Glargine 10 UNITS in Pre-Filled Syringe 1 EACH SC SCH (10:37)
[2020-02-26] MEDS: Senokot S 8.6-50 MG TAB PO SCH ×2 (10:45→20:28)
[2020-02-26] MEDS: Hydrochlorothiazide 25 MG TAB PO SCH (11:38)
[2020-02-26] MEDS: Minoxidil 10 MG TAB PO SCH (11:38)
[2020-02-26 14:18] LABS: Creatinine, Urine 134.08 mg/dL (63-166); Protein, Urine Random Quant Less than 10 mg/dL (1-14)
--- NOTE | 2020-02-26 17:24 | PRG ---
DATE OF SERVICE: 02/26/2020 SUBJECTIVE: The patient was seen and examined, noted with the following vital signs, much more alert today. OBJECTIVE: VITAL SIGNS: Afebrile, temperature 97.4, pulse 78, respiratory rate of 19, O2 saturations of 98%, blood pressure 103/55 to 138/70, HEENT: Unremarkable. CARDIOVASCULAR: First and second heart sounds were heard. RESPIRATORY: Clear to auscultation. DIGESTIVE: Revealed a benign abdomen with positive bowel sounds. EXTREMITIES: No peripheral edema. SKIN: No new gross rash. LYMPHATICS: No peripheral lymphadenopathy. LABORATORY DATA: Laboratory investigation showed a creatinine that has gone up to 3.5, bicarb of 19, sodium 130. Hemoglobin of 8. IMPRESSION: 1. Acute on chronic kidney disease. The recent bump in creatinine is likely hemodynamically mediated in the context of hypotension/improvement in the hemodynamics. 2. Mild metabolic acidosis. 3. Hyponatremia, partly pseudohyponatremia in the context of severe hyperglycemia. 4. Baseline chronic kidney disease in the context of diabetic nephropathy. 5. Anemia, partly that of anemia of chronic kidney disease. PLAN: 1. Discontinue lisinopril outright. 2. Discontinue hydrochlorothiazide, especially in the context of hyponatremia and the fact that the patient is also being gently rehydrated to optimize hemodynamics. 3. I do agree with gentle rehydration. 4. Continue to monitor the hemodynamics. 5. Erythropoiesis stimulating agent to be initiated. 6. Monitor the hemodynamics closely. Job ID: [id number]
[2020-02-26] MEDS ORDERED: EPOETIN ALFA-EPBX (ESRD) 10,000 UNIT/ML VIAL SC SCH (18:00)
[2020-02-26] MEDS: HumaLOG 300 UNITS/3 ML VIAL SC PRN ×2 (18:05→21:45)
[2020-02-26] MEDS: Atorvastatin Calcium 40 MG TAB PO SCH (20:28)
[2020-02-26] MEDS: Ubidecarenone 50 MG CAP PO SCH (20:28)
[2020-02-26] MEDS: Lidocaine Patch Removal 1 EACH TOP SCH (20:29)
[2020-02-27 04:18] LABS: Hemoglobin 7.9 g/dL (14.0-18.0); Platelet Count 362 thou/uL (130-400)
[2020-02-27 04:35] LABS: Anion Gap 16 mmol/L (10-20); BUN (Urea Nitrogen) 89 mg/dL (8.4-25.7); BUN/Creatinine Ratio 26.18; Calc. Creatinine Clearance 28 mL/min (70-130); Calcium 8.3 mg/dL (7.8-10.44); Carbon Dioxide 16 mmol/L (23-31); Chloride 101 mmol/L (98-107); Estimated GFR-MDRD 22; Glucose 316 mg/dL (80-115); Phosphorus 5.8 mg/dL (2.3-4.7); Potassium 4.8 mmol/L (3.5-5.1); Sodium 128 mmol/L (136-145)
[2020-02-27] MEDS: Bisacodyl 10 MG SUPP PR SCH ×3 (04:56→21:20)
[2020-02-27] MEDS: HumaLOG 300 UNITS/3 ML VIAL SC PRN ×4 (06:15→21:25)
[2020-02-27] MEDS: predniSONE 20 MG TAB PO SCH (09:06)
[2020-02-27] MEDS: Clopidogrel Bisulfate 75 MG TAB PO SCH (09:06)
[2020-02-27] MEDS: Aspirin 81 mg Enteric Coated Tablet PO SCH (09:06)
[2020-02-27] MEDS: Gabapentin 400 MG CAP PO SCH ×2 (09:06→21:21)
[2020-02-27] MEDS: Carvedilol 25 MG TAB PO SCH ×2 (09:06→21:21)
[2020-02-27] MEDS: Ferrous Sulfate 325 MG TAB PO SCH (09:06)
[2020-02-27] MEDS: Lidocaine 5% Patch TD SCH (09:06)
[2020-02-27] MEDS: Senokot S 8.6-50 MG TAB PO SCH ×2 (09:07→21:22)
[2020-02-27] MEDS: Insulin Glargine 10 UNITS in Pre-Filled Syringe 1 EACH SC SCH (09:08)
[2020-02-27] MEDS: Minoxidil 10 MG TAB PO SCH (09:08)
--- NOTE | 2020-02-27 10:44 | PRG ---
DATE OF SERVICE: 02/25/2020 SUBJECTIVE: The patient is seen and examined, noted to be sleepy with labile hemodynamics. OBJECTIVE: VITAL SIGNS: Blood pressure down to the 90s and 80s on examination. Otherwise, the rest of the vitals okay. HEENT: Unremarkable. Moist oral mucosa. No conjunctival injection. No icterus. NECK: Supple. CARDIOVASCULAR: First and second heart sounds were heard. RESPIRATORY: Clear to auscultation. DIGESTIVE: Revealed a benign abdomen with positive bowel sounds. EXTREMITIES: No peripheral edema. SKIN: No new gross rash. LYMPHATICS: No peripheral lymphadenopathy. LABORATORY INVESTIGATIONS: Showed creatinine of 2.49. IMPRESSION: 1. Labile hemodynamics in the context of introduction of new antihypertensive medications. 2. Acute on chronic kidney disease, improving. 3. anemia of chronic kidney disease. 4. Chronic kidney disease stage 3, likely diabetic nephropathy. PLAN: 1. We will deescalate antihypertensive medications especially now that on board. We will begin to reduce the dose of the lisinopril to 10 mg and discontinue hydralazine and monitor the hemodynamics afterwards. If the patient's creatinine begins to rise, we will likely discontinue LARISSA inhibitor outright. 2. Further management to be dependent on the clinical course. Job ID: [id number]
[2020-02-27] MEDS: Sodium Chloride 0.9% 1,000 ML IV SCH ×2 (11:53→23:18)
--- NOTE | 2020-02-27 14:41 | PDOC.HOSPP ---
- Subjective Encounter Date: 02/27/20 Encounter Time: 14:30 Subjective: f/u for LIZZIE/CKD tx with IV NS. Slow improvement but pt states he is feeling better overall. Ambulated with PT in [place]. - Objective Vital Signs & Weight: Vital Signs (12 hours) Temp Pulse Resp BP BP Pulse Ox 02/27/20 11:51 97.8 F 79 12 114/59 L 96 02/27/20 09:05 97.7 F 82 12 110/65 97 02/27/20 03:10 98.0 F 78 18 125/55 L 97 Weight Admit Weight 203 lb 3.2 oz Weight 197 lb 1.6 oz I&O: 02/26/20 02/27/20 02/28/20 06:59 06:59 06:59 Intake Total 1979 2500 Output Total 400 Balance 1979 2100 Result Diagrams: 02/27/20 03:43 02/27/20 03:43 Additional Labs: Accuchecks 02/27/20 02/27/20 02/26/20 11:19 05:52 20:39 POC Glucose 273 H 289 H 505 H 02/26/20 17:11 POC Glucose 416 H Microbiology 02/21/20 03:10 Stool Stool Occult Blood ([facility]) - Final 02/18/20 00:40 Urine clean catch Urine Culture - Final Beta-hemolytic Streptococcus 02/21/20 13:26 Joint - Liquid Body Fluid Culture - Preliminary 02/18/20 23:43 Venous blood - Left Arm Blood Culture - Preliminary Specimen has been received and culture in progress. No Growth to date. 02/18/20 21:46 Venous blood - Left Hand Blood Culture - Preliminary NO GROWTH AT 48 HOURS Laboratory Tests 07/15/19 02/18/20 02/18/20 07:20 17:55 17:55 Hgb 8.4 L Retic Count BUN Creatinine 2.34 H Hemoglobin A1c 13.4 H Iron Ferritin C-Reactive Protein Procalcitonin Fluid Crystal ID Vancomycin Trough 02/18/20 02/19/20 02/19/20 21:46 04:37 04:37 Hgb 7.7 L Retic Count BUN Creatinine 2.46 H Hemoglobin A1c Iron Ferritin C-Reactive Protein Procalcitonin 0.56 Fluid Crystal ID Vancomycin Trough 02/19/20 02/19/20 02/20/20 04:37 07:31 04:03 Hgb Retic Count BUN Creatinine Hemoglobin A1c 10.9 H Iron Ferritin C-Reactive Protein 18.33 H Procalcitonin 0.60 Fluid Crystal ID Vancomycin Trough 02/20/20 02/20/20 02/21/20 04:03 04:03 01:26 Hgb 7.7 L Retic Count BUN Creatinine 2.44 H Hemoglobin A1c Iron Ferritin C-Reactive Protein Procalcitonin Fluid Crystal ID Vancomycin Trough 14.7 02/21/20 02/24/20 02/25/20 13:26 04:09 04:33 Hgb Retic Count BUN 40 H Creatinine 2.45 H Hemoglobin A1c Iron 46 L Ferritin C-Reactive Protein Procalcitonin Fluid Crystal ID Vancomycin Trough 02/25/20 02/25/20 04:33 04:33 Hgb Retic Count 1.2 BUN Creatinine Hemoglobin A1c Iron Ferritin 1235.87 H C-Reactive Protein Procalcitonin Fluid Crystal ID Vancomycin Trough EKG Reviewed by me: Yes (Tele - SR) Hospitalist ROS - Medication Medications: Active Medications Generic Name Dose Route Start Last Admin Trade Name Freq PRN Reason Stop Dose Admin Acetaminophen 650 mg 02/18/20 20:42 02/22/20 17:23 Tylenol PO 650 mg Q4H PRN Administration Headache/Fever/Mild Pain (1-3) Aspirin 81 mg 02/19/20 09:00 02/27/20 09:06 Ecotrin PO 81 mg DAILY GRAYSON Administration Atorvastatin Calcium 80 mg 02/19/20 21:00 02/26/20 20:28 Lipitor PO 80 mg HS GRAYSON Administration Bisacodyl 10 mg 02/22/20 12:30 02/27/20 11:54 Dulcolax [place] Not Given Q8H GRAYSON Carvedilol 25 mg 02/19/20 09:00 02/27/20 09:06 Coreg PO 25 mg BID GRAYSON Administration Clopidogrel Bisulfate 75 mg 02/19/20 09:00 02/27/20 09:06 Plavix PO 75 mg DAILY GRAYSON Administration Coenzyme Q10 50 mg 02/19/20 21:00 02/26/20 20:28 Coenzyme Q10 PO 50 mg HS GRAYSON Administration Epoetin Andrés-epbx 10,000 unit 02/26/20 18:00 02/26/20 18:05 Retacrit SC 10,000 unit Q7D GRAYSON Administration Ergocalciferol 1.25 mg 02/25/20 09:00 02/25/20 08:41 Drisdol PO 1.25 mg Q7DAYS GRAYSON Administration Ferrous Sulfate 325 mg 02/19/20 08:00 02/27/20 09:06 Feosol PO 325 mg QAM-WM GRAYSON Administration Gabapentin 400 mg 02/20/20 09:00 02/27/20 09:06 Neurontin PO 400 mg BID GRAYSON Administration Glipizide 10 mg 02/19/20 09:00 02/27/20 09:06 Glucotrol Xl PO 10 mg DAILY GRAYSON Administration Hydralazine HCl 10 mg 02/18/20 21:24 02/24/20 17:55 Apresoline SLOW IVP 10 mg Q4H PRN Administration Hypertension Insulin Glargine 10 units/ 0.1 mls @ 0 mls/hr 02/20/20 09:00 02/27/20 09:08 Miscellaneous Medication SC 0.1 mls QAM GRAYSON Administration Sodium Chloride 1,000 mls @ 75 mls/hr 02/26/20 08:45 02/27/20 11:53 Normal Saline 0.9% IV 1,000 mls .[id number] GRAYSON Administration Insulin Human Lispro 0 units 02/18/20 22:48 02/27/20 11:54 Humalog SC 4 unit .MILD SLIDING SCALE PRN Administration Mild Correctional Scale Insulin Human Lispro 0 units 02/18/20 22:48 02/26/20 21:45 Humalog SC 5 unit .BEDTIME SLIDING SC PRN Administration Bedtime Correctional Scale Lidocaine 1 patch 02/26/20 09:00 02/27/20 09:06 Lidoderm 5% Patch TD 1 patch DAILY GRAYSON Administration Miscellaneous Medication 1 each 02/26/20 21:00 02/26/20 20:29 Lidocaine Patch Removal TOP 1 each 2100 GRAYSON Administration Prednisone 40 mg 02/24/20 08:00 02/27/20 09:06 Prednisone PO 40 mg QAM-WM GRAYSON Administration Senna/Docusate Sodium 1 tab 02/22/20 21:00 02/27/20 09:07 Senokot S PO 1 tab BID GRAYSON Administration Sodium Chloride 10 ml 02/19/20 21:00 02/27/20 09:08 Flush - Normal Saline IVF 10 ml Q12HR GRAYSON Administration Sodium Chloride 10 ml 02/19/20 10:10 02/23/20 02:07 Flush - Normal Saline IVF 10 ml PRN PRN Administration Saline Flush - Exam General Appearance: NAD, awake alert Eye: PERRL, anicteric sclera ENT: normocephalic atraumatic, no oropharyngeal lesions Neck: supple, symmetric, no JVD, no thyromegaly, no lymphadenopathy Heart: RRR, no murmur, no gallops, no rubs, normal peripheral pulses Heart - other findings: S1, S2 Respiratory: CTAB, no wheezes, no rales, no ronchi, normal chest expansion Gastrointestinal: soft, non-tender, non-distended, normal bowel sounds, no palpable masses Extremities: no cyanosis Extremities - other findings: R elbow with mild edema, less TTP Skin: normal turgor, no lesions Neurological: cranial nerve grossly intact, no new deficit Musculoskeletal: normal tone, generalized weakness Musculoskeletal - other findings: R knee with decreased edema and tenderness Psychiatric: normal affect, A&O x 3 Hosp A/P (1) Hypotension Status: Acute Plan: Iatrogenic, resolving, continue current BP regimen (2) Arthropathy Code(s): M12.9 - ARTHROPATHY, UNSPECIFIED Status: Acute Plan: Gouty arthropathy, continue Prednisone, ROM exercises (3) Type 2 myocardial infarction Code(s): I21.A1 - MYOCARDIAL INFARCTION TYPE 2 Status: Acute (4) LIZZIE (acute kidney injury) Code(s): N17.9 - ACUTE KIDNEY FAILURE, UNSPECIFIED Status: Acute Plan: Continue low-volume IVF's, avoid nephrotoxic meds and limit contrast exposure (5) Anemia in CKD (chronic kidney disease) Code(s): N18.9 - CHRONIC KIDNEY DISEASE, UNSPECIFIED; D63.1 - ANEMIA IN CHRONIC KIDNEY DISEASE Status: Chronic Plan: Serial H/H, Erythropoetin, s/p 1u PRBC's (6) Diabetes mellitus Code(s): E11.9 - TYPE 2 DIABETES MELLITUS WITHOUT COMPLICATIONS Status: Chronic Plan: Labile due to steroids (7) HTN (hypertension) Code(s): I10 - ESSENTIAL (PRIMARY) HYPERTENSION Status: Chronic Qualifiers: Hypertension type: essential hypertension Qualified Code(s): I10 - Essential (primary) hypertension (8) Constipation Code(s): K59.00 - CONSTIPATION, UNSPECIFIED Status: Acute Qualifiers: Constipation type: slow transit constipation Qualified Code(s): K59.01 - Slow transit constipation - Plan PT/OT, social science analyst, out of bed/ambulate, DVT proph w/SCDs Stable currently Start Prednisone 40mg daily s/p 1u PRBC's IV Iron infusion completed Hold Hydralazine/Minoxidil/Lisinopril D/C Rocephin/Vancomycin Cardiology consult appreciated Appreciated Nephrology consult IV NS @ 75ml/h Bowel regimen AM lab: BMP, H/H [place] [facility] when stabilized
--- NOTE | 2020-02-27 18:04 | PRG ---
DATE OF SERVICE: 02/27/2020 SUBJECTIVE: The patient was seen and examined, noted with the following vital signs. OBJECTIVE: VITAL SIGNS: Afebrile, temperature 97.8, pulse 84, respiratory rate of 18, O2 saturation of 97%, blood pressure 126/71 to 110/65. HEENT: Unremarkable. CARDIOVASCULAR SYSTEM: First and second heart sounds were heard. RESPIRATORY SYSTEM: Clear to auscultation. DIGESTIVE SYSTEM: Revealed a benign abdomen. EXTREMITIES: No peripheral edema. SKIN: No new gross rash. LYMPHATICS: No peripheral lymphadenopathy. IMPRESSION: 1. Acute on chronic kidney disease with a marginal improvement in the creatinine level. 2. Labile hemodynamics, much improved with discontinuation of many antihypertensive medications. 3. Anemia. 4. Metabolic acidosis. 5. Hyponatremia. PLAN: 1. The patient is to continue with current renal supportive measures. 2. We would decrease the minoxidil to 5 mg and monitor the hemodynamics. We would like to gradually decrease this patient's blood pressure rather than crushing it down from the 200s to the one teens. 3. Erythropoiesis stimulating agents already administered. 4. Outpatient Nephrology close followup recommended status post discharge. Job ID: [id number]
[2020-02-27] MEDS: Atorvastatin Calcium 40 MG TAB PO SCH (21:21)
[2020-02-27] MEDS: Ubidecarenone 50 MG CAP PO SCH (21:21)
[2020-02-27] MEDS: Lidocaine Patch Removal 1 EACH TOP SCH (21:31)
[2020-02-28 05:12] LABS: Hemoglobin 7.6 g/dL (14.0-18.0); Platelet Count 336 thou/uL (130-400)
[2020-02-28 05:35] LABS: Anion Gap 13 mmol/L (10-20); BUN (Urea Nitrogen) 90 mg/dL (8.4-25.7); BUN/Creatinine Ratio 31.91; Calc. Creatinine Clearance 34 mL/min (70-130); Calcium 8.2 mg/dL (7.8-10.44); Carbon Dioxide 19 mmol/L (23-31); Chloride 106 mmol/L (98-107); Estimated GFR-MDRD 28; Glucose 350 mg/dL (80-115); Phosphorus 4.5 mg/dL (2.3-4.7); Potassium 4.8 mmol/L (3.5-5.1); Sodium 133 mmol/L (136-145)
[2020-02-28] MEDS: Bisacodyl 10 MG SUPP PR SCH ×3 (06:16→21:21)
[2020-02-28] MEDS: HumaLOG 300 UNITS/3 ML VIAL SC PRN ×4 (06:17→21:30)
[2020-02-28] MEDS: Lidocaine 5% Patch TD SCH (09:02)
[2020-02-28] MEDS: Insulin Glargine 10 UNITS in Pre-Filled Syringe 1 EACH SC SCH (09:03)
[2020-02-28] MEDS: predniSONE 20 MG TAB PO SCH (09:03)
[2020-02-28] MEDS: Minoxidil 10 MG TAB PO SCH (09:03)
[2020-02-28] MEDS: Aspirin 81 mg Enteric Coated Tablet PO SCH (09:04)
[2020-02-28] MEDS: Gabapentin 400 MG CAP PO SCH ×2 (09:04→21:23)
[2020-02-28] MEDS: Carvedilol 25 MG TAB PO SCH (09:04)
[2020-02-28] MEDS: Senokot S 8.6-50 MG TAB PO SCH ×2 (09:04→23:03)
[2020-02-28] MEDS: Clopidogrel Bisulfate 75 MG TAB PO SCH (09:04)
[2020-02-28] MEDS: Ferrous Sulfate 325 MG TAB PO SCH (09:04)
[2020-02-28] MEDS: Sodium Chloride 0.9% 1,000 ML IV SCH (09:05)
--- NOTE | 2020-02-28 12:36 | PDOC.HOSPP ---
- Subjective Encounter Date: 02/28/20 Encounter Time: 10:50 Subjective: doing well, no menezes or SOB c/o, BP on t he low end. tends to run on the low side? - Objective Vital Signs & Weight: Vital Signs (12 hours) Temp Pulse Resp BP Pulse Ox 02/28/20 11:25 97.6 F 79 16 93/51 L 96 02/28/20 07:23 97.9 F 83 16 107/53 L 99 02/28/20 04:00 98.4 F 91 20 108/53 L 98 Weight Admit Weight 203 lb 3.2 oz Weight 197 lb 8 oz I&O: 02/27/20 02/28/20 02/29/20 06:59 06:59 06:59 Intake Total 2500 1050 Output Total 400 900 Balance 2100 150 Result Diagrams: 02/28/20 04:51 02/28/20 04:51 Additional Labs: Accuchecks 02/28/20 02/28/20 02/27/20 10:43 05:22 20:42 POC Glucose 295 H 353 H 401 H 02/27/20 16:27 POC Glucose 369 H Hospitalist ROS - Medication Medications: Active Medications Generic Name Dose Route Start Last Admin Trade Name Freq PRN Reason Stop Dose Admin Acetaminophen 650 mg 02/18/20 20:42 02/22/20 17:23 Tylenol PO 650 mg Q4H PRN Administration Headache/Fever/Mild Pain (1-3) Aspirin 81 mg 02/19/20 09:00 02/28/20 09:04 Ecotrin PO 81 mg DAILY GRAYSON Administration Atorvastatin Calcium 80 mg 02/19/20 21:00 02/27/20 21:21 Lipitor PO 80 mg HS GRAYSON Administration Bisacodyl 10 mg 02/22/20 12:30 02/28/20 06:16 Dulcolax [place] Not Given Q8H GRAYSON Clopidogrel Bisulfate 75 mg 02/19/20 09:00 02/28/20 09:04 Plavix PO 75 mg DAILY GRAYSON Administration Coenzyme Q10 50 mg 02/19/20 21:00 02/27/20 21:21 Coenzyme Q10 PO 50 mg HS GRAYSON Administration Epoetin Andrés-epbx 10,000 unit 02/26/20 18:00 02/26/20 18:05 Retacrit SC 10,000 unit Q7D GRAYSON Administration Ergocalciferol 1.25 mg 02/25/20 09:00 02/25/20 08:41 Drisdol PO 1.25 mg Q7DAYS GRAYSON Administration Ferrous Sulfate 325 mg 02/19/20 08:00 02/28/20 09:04 Feosol PO 325 mg QAM-WM GRAYSON Administration Gabapentin 400 mg 02/20/20 09:00 02/28/20 09:04 Neurontin PO 400 mg BID GRAYSON Administration Glipizide 10 mg 02/19/20 09:00 02/28/20 09:04 Glucotrol Xl PO 10 mg DAILY GRAYSON Administration Hydralazine HCl 10 mg 02/18/20 21:24 02/24/20 17:55 Apresoline SLOW IVP 10 mg Q4H PRN Administration Hypertension Sodium Chloride 1,000 mls @ 75 mls/hr 02/26/20 08:45 02/28/20 09:05 Normal Saline 0.9% IV 1,000 mls .[id number] GRAYSON Administration Insulin Human Lispro 0 units 02/18/20 22:48 02/28/20 11:36 Humalog SC 4 unit .MILD SLIDING SCALE PRN Administration Mild Correctional Scale Insulin Human Lispro 0 units 02/18/20 22:48 02/27/20 21:25 Humalog SC 5 unit .BEDTIME SLIDING SC PRN Administration Bedtime Correctional Scale Lidocaine 1 patch 02/26/20 09:00 02/28/20 09:02 Lidoderm 5% Patch TD 1 patch DAILY GRAYSON Administration Minoxidil 5 mg 02/28/20 09:00 02/28/20 09:03 Minoxidil PO 5 mg DAILY GRAYSON Administration Miscellaneous Medication 1 each 02/26/20 21:00 02/27/20 21:31 Lidocaine Patch Removal TOP Not Given 2100 GRAYSON Prednisone 40 mg 02/24/20 08:00 02/28/20 09:03 Prednisone PO 40 mg QAM-WM GRAYSON Administration Senna/Docusate Sodium 1 tab 02/22/20 21:00 02/28/20 09:04 Senokot S PO 1 tab BID GRAYSON Administration Sodium Chloride 10 ml 02/19/20 21:00 02/28/20 09:05 Flush - Normal Saline IVF 10 ml Q12HR GRAYSON Administration Sodium Chloride 10 ml 02/19/20 10:10 02/23/20 02:07 Flush - Normal Saline IVF 10 ml PRN PRN Administration Saline Flush - Exam General Appearance: NAD, awake alert Eye: PERRL ENT: normocephalic atraumatic Neck: supple Heart: RRR, normal peripheral pulses Respiratory: CTAB, normal chest expansion Gastrointestinal: soft, normal bowel sounds Neurological: no focal deficits Hosp A/P - Plan (1) Hypotension Status: Acute Plan: Iatrogenic, resolving, continue current BP regimen (2)Gouty Arthropathy Code(s): M12.9 - ARTHROPATHY, UNSPECIFIED Status: Acute Plan: Gouty arthropathy, continue Prednisone, ROM exercises (3) Type 2 myocardial infarction Code(s): I21.A1 - MYOCARDIAL INFARCTION TYPE 2 Status: Acute (4) LIZZIE (acute kidney injury) Code(s): N17.9 - ACUTE KIDNEY FAILURE, UNSPECIFIED Status: Acute Plan: Continue low-volume IVF's, avoid nephrotoxic meds and limit contrast exposure (5) Anemia in CKD (chronic kidney disease) Code(s): N18.9 - CHRONIC KIDNEY DISEASE, UNSPECIFIED; D63.1 - ANEMIA IN CHRONIC KIDNEY DISEASE Status: Chronic Plan: Serial H/H, Erythropoetin, s/p 1u PRBC's (6) Diabetes mellitus Code(s): E11.9 - TYPE 2 DIABETES MELLITUS WITHOUT COMPLICATIONS Status: Chronic Plan: Labile due to steroids (7) HTN (hypertension) Code(s): I10 - ESSENTIAL (PRIMARY) HYPERTENSION Status: Chronic Qualifiers: Hypertension type: essential hypertension Qualified Code(s): I10 - Essential (primary) hypertension (8) Constipation Code(s): K59.00 - CONSTIPATION, UNSPECIFIED Status: Acute Qualifiers: Constipation type: slow transit constipation Qualified Code(s): K59.01 - Slow transit constipation - Plan PT/OT, social group worker, out of bed/ambulate, DVT proph w/SCDs Started Prednisone 40mg daily s/p 1u PRBC's------->7.6 -- contin..monitoring. IV Iron infusion completed Hold Hydralazine/Minoxidil/Lisinopril --coreg and mionoxidil dose decreased D/C Rocephin/Vancomycin Cardiology consult appreciated Appreciated Nephrology consult Bowel regimen CM c/s, PT/OT ordered. [facility] when medically stable.
[2020-02-28] MEDS: Acetaminophen 325 MG TAB PO PRN (17:40)
[2020-02-28] MEDS: Insulin Glargine 15 UNITS in Pre-Filled Syringe 1 EACH SC SCH (21:21)
[2020-02-28] MEDS: Ubidecarenone 50 MG CAP PO SCH (21:22)
[2020-02-28] MEDS: Atorvastatin Calcium 40 MG TAB PO SCH (21:22)
[2020-02-28] MEDS: Lidocaine Patch Removal 1 EACH TOP SCH (21:23)
[2020-02-28] MEDS: Carvedilol 6.25 MG TAB PO SCH (21:23)
--- NOTE | 2020-02-28 22:01 | PRG ---
DATE OF SERVICE: 02/28/2020 SUBJECTIVE: Noted with the following vital signs. OBJECTIVE: VITAL SIGNS: Afebrile, temperature 97.7, pulse 84, respiratory rate 15, O2 sat of 96%, and blood pressure 130/51 to 138/63. HEENT: Unremarkable. CARDIOVASCULAR: First and second heart sounds were heard. RESPIRATORY: Clear to auscultation. DIGESTIVE: Revealed a benign abdomen with positive bowel sounds. EXTREMITIES: No peripheral edema. SKIN: No new gross rash. LYMPHATIC: No peripheral lymphadenopathy. LABORATORY INVESTIGATION: Laboratory investigation showed a hemoglobin of 7.6 and chemistry showed a creatinine of 2.82 with BUN of 90, potassium of 4.8, and sodium of 133. Blood sugar of 350 to 401. IMPRESSION: 1. Acute on chronic kidney disease, which seems to be improving. The recent rise in creatinine was due to significant improvement in the hemodynamics. 2. Blood pressure, this seems to be much improved. 3. Metabolic acidosis. 4. Hyponatremia, this seems to be improving and possibly due to pseudohyponatremia. 5. Chronic kidney disease in the context of diabetic nephropathy. PLAN: 1. Monitor the hemodynamics. Blood pressure seems to be leveling up at this point. If there is any further adjustment, we will probably cut back on the carvedilol. 2. Continue to renally dose all medications. 3. Outpatient Nephrology followup, status post discharge strongly recommended. 4. Further management to be dependent on the clinical course. Job ID: [id number]
[2020-02-29] MEDS: Sodium Chloride 0.9% 1,000 ML IV SCH ×2 (00:24→16:28)
[2020-02-29 04:42] LABS: #Eosinphils 0.1 thou/uL (0.0-0.7); #Lymphocytes 1.3 thou/uL (1.20-3.40); #Monocytes 0.6 thou/uL (0.11-0.59); #Neutrophils 6.8 thou/uL (1.40-6.50); %Basophils 0.5 % (0.0-1.0); %Eosinophils 1.5 % (0.0-10.0); %Lymphocytes 14.8 % (21.0-51.0); %Neutrophils 76.3 % (42.0-75.0); Hemoglobin 7.3 g/dL (14.0-18.0); Mean Corpuscular HGB CONC 35.8 g/dL (32.0-36.0); Mean Corpuscular Hemoglobin 29.4 pg (27.0-31.0); Mean Platelet Volume 7.6 fL (7.4-10.4); Platelet Count 349 thou/uL (130-400); Red Blood Cell (RBC) Count 2.48 mill/uL (4.70-6.10)
[2020-02-29 04:47] LABS: Hemoglobin A1c 10.1 % (4.0-6.0)
[2020-02-29 05:07] LABS: Albumin 2.9 g/dL (3.4-4.8); Anion Gap 12 mmol/L (10-20); BUN (Urea Nitrogen) 73 mg/dL (8.4-25.7); BUN/Creatinine Ratio 31.33; Calc. Creatinine Clearance 41 mL/min (70-130); Calcium 8.4 mg/dL (7.8-10.44); Carbon Dioxide 17 mmol/L (23-31); Chloride 108 mmol/L (98-107); Estimated GFR-MDRD 34; Glucose 321 mg/dL (80-115); Phosphorus 3.6 mg/dL (2.3-4.7); Potassium 5.1 mmol/L (3.5-5.1); Sodium 132 mmol/L (136-145)
[2020-02-29] MEDS: Bisacodyl 10 MG SUPP PR SCH ×4 (06:23→22:16)
[2020-02-29] MEDS: HumaLOG 300 UNITS/3 ML VIAL SC PRN ×4 (06:24→22:32)
[2020-02-29] MEDS: Minoxidil 10 MG TAB PO SCH (08:29)
[2020-02-29] MEDS: predniSONE 20 MG TAB PO SCH (08:30)
[2020-02-29] MEDS: Lidocaine 5% Patch TD SCH (08:30)
[2020-02-29] MEDS: Gabapentin 400 MG CAP PO SCH ×2 (08:31→22:31)
[2020-02-29] MEDS: Senokot S 8.6-50 MG TAB PO SCH ×2 (08:31→22:32)
[2020-02-29] MEDS: Ferrous Sulfate 325 MG TAB PO SCH (08:31)
[2020-02-29] MEDS: Aspirin 81 mg Enteric Coated Tablet PO SCH (08:31)
[2020-02-29] MEDS: Clopidogrel Bisulfate 75 MG TAB PO SCH (08:31)
[2020-02-29] MEDS: Carvedilol 6.25 MG TAB PO SCH ×2 (08:31→22:31)
[2020-02-29] MEDS: Insulin Glargine 15 UNITS in Pre-Filled Syringe 1 EACH SC SCH ×2 (08:37→22:29)
--- NOTE | 2020-02-29 13:58 | PDOC.HOSPP ---
- Subjective Encounter Date: 02/29/20 Encounter Time: 10:20 Subjective: BP on high side. pt sitting on the bed. comfortable. did not had any acute complaints. - Objective Vital Signs & Weight: Vital Signs (12 hours) Temp Pulse Resp BP BP BP Pulse Ox 02/29/20 11:26 97.5 F L 81 14 167/77 H 96 02/29/20 08:31 138/60 02/29/20 07:50 97.4 F L 80 16 132/61 164/73 H 97 02/29/20 04:00 97.7 F 85 20 111/58 L 96 Weight Admit Weight 203 lb 3.2 oz Weight 200 lb 3.2 oz I&O: 02/28/20 02/29/20 03/01/20 06:59 06:59 06:59 Intake Total 1050 1350 Output Total 900 2100 Balance 150 -750 Result Diagrams: 02/29/20 03:35 02/29/20 03:35 Additional Labs: Accuchecks 02/29/20 02/29/20 02/28/20 10:38 05:46 20:23 POC Glucose 238 H 282 H 418 H 02/28/20 16:43 POC Glucose 395 H Hospitalist ROS - Medication Medications: Active Medications Generic Name Dose Route Start Last Admin Trade Name Freq PRN Reason Stop Dose Admin Acetaminophen 650 mg 02/18/20 20:42 02/28/20 17:40 Tylenol PO 650 mg Q4H PRN Administration Headache/Fever/Mild Pain (1-3) Aspirin 81 mg 02/19/20 09:00 02/29/20 08:31 Ecotrin PO 81 mg DAILY GRAYSON Administration Atorvastatin Calcium 80 mg 02/19/20 21:00 02/28/20 21:22 Lipitor PO 80 mg HS GRAYSON Administration Bisacodyl 10 mg 02/22/20 12:30 02/29/20 12:47 Dulcolax [place] Not Given Q8H GRAYSON Carvedilol 6.25 mg 02/28/20 21:00 02/29/20 08:31 Coreg PO 6.25 mg BID GRAYSON Administration Clopidogrel Bisulfate 75 mg 02/19/20 09:00 02/29/20 08:31 Plavix PO 75 mg DAILY GRAYSON Administration Coenzyme Q10 50 mg 02/19/20 21:00 02/28/20 21:22 Coenzyme Q10 PO 50 mg HS GRAYSON Administration Epoetin Andrés-epbx 10,000 unit 02/26/20 18:00 02/26/20 18:05 Retacrit SC 10,000 unit Q7D GRAYSON Administration Ergocalciferol 1.25 mg 02/25/20 09:00 02/25/20 08:41 Drisdol PO 1.25 mg Q7DAYS GRAYSON Administration Ferrous Sulfate 325 mg 02/19/20 08:00 02/29/20 08:31 Feosol PO 325 mg QAM-WM GRAYSON Administration Gabapentin 400 mg 02/20/20 09:00 02/29/20 08:31 Neurontin PO 400 mg BID GRAYSON Administration Glipizide 10 mg 02/19/20 09:00 02/29/20 08:31 Glucotrol Xl PO 10 mg DAILY GRAYSON Administration Hydralazine HCl 10 mg 02/18/20 21:24 02/24/20 17:55 Apresoline SLOW IVP 10 mg Q4H PRN Administration Hypertension Sodium Chloride 1,000 mls @ 75 mls/hr 02/26/20 08:45 02/29/20 00:24 Normal Saline 0.9% IV 1,000 mls .[id number] GRAYSON Administration Insulin Glargine 15 units/ 0.15 mls @ 0 mls/hr 02/28/20 21:00 02/29/20 08:37 Miscellaneous Medication SC 0.15 mls BID GRAYSON Administration Insulin Human Lispro 0 units 02/18/20 22:48 02/29/20 11:21 Humalog SC 3 unit .MILD SLIDING SCALE PRN Administration Mild Correctional Scale Insulin Human Lispro 0 units 02/18/20 22:48 02/28/20 21:30 Humalog SC 5 unit .BEDTIME SLIDING SC PRN Administration Bedtime Correctional Scale Lidocaine 1 patch 02/26/20 09:00 02/29/20 08:30 Lidoderm 5% Patch TD 1 patch DAILY GRAYSON Administration Minoxidil 5 mg 02/28/20 09:00 02/29/20 08:29 Minoxidil PO 5 mg DAILY GRAYSON Administration Miscellaneous Medication 1 each 02/26/20 21:00 02/28/20 21:23 Lidocaine Patch Removal TOP 1 each 2100 GRAYSON Administration Prednisone 40 mg 02/24/20 08:00 02/29/20 08:30 Prednisone PO 40 mg QAM-WM GRAYSON Administration Senna/Docusate Sodium 1 tab 02/22/20 21:00 02/29/20 08:31 Senokot S PO 1 tab BID GRAYSON Administration Sodium Chloride 10 ml 02/19/20 21:00 02/29/20 08:32 Flush - Normal Saline IVF Not Given Q12HR GRAYSON Sodium Chloride 10 ml 02/19/20 10:10 02/23/20 02:07 Flush - Normal Saline IVF 10 ml PRN PRN Administration Saline Flush - Exam General Appearance: NAD, awake alert Eye: PERRL ENT: normocephalic atraumatic Neck: supple Heart: RRR, normal peripheral pulses Respiratory: CTAB, normal chest expansion Gastrointestinal: normal bowel sounds Neurological: no focal deficits Psychiatric: A&O x 3 Hosp A/P - Plan (1) Hypotension Status: Acute Plan: Iatrogenic, resolving, continue current BP regimen (2)Gouty Arthropathy Code(s): M12.9 - ARTHROPATHY, UNSPECIFIED Status: Acute Plan: Gouty arthropathy, continue Prednisone, ROM exercises (3) Type 2 myocardial infarction Code(s): I21.A1 - MYOCARDIAL INFARCTION TYPE 2 Status: Acute (4) LIZZIE (acute kidney injury) Code(s): N17.9 - ACUTE KIDNEY FAILURE, UNSPECIFIED Status: Acute Plan: Continue low-volume IVF's, avoid nephrotoxic meds and limit contrast exposure (5) Anemia in CKD (chronic kidney disease) Code(s): N18.9 - CHRONIC KIDNEY DISEASE, UNSPECIFIED; D63.1 - ANEMIA IN CHRONIC KIDNEY DISEASE Status: Chronic Plan: Serial H/H, Erythropoetin, s/p 1u PRBC's (6) Diabetes mellitus Code(s): E11.9 - TYPE 2 DIABETES MELLITUS WITHOUT COMPLICATIONS Status: Chronic Plan: Labile due to steroids (7) HTN (hypertension) Code(s): I10 - ESSENTIAL (PRIMARY) HYPERTENSION Status: Chronic Qualifiers: Hypertension type: essential hypertension Qualified Code(s): I10 - Essential (primary) hypertension (8) Constipation Code(s): K59.00 - CONSTIPATION, UNSPECIFIED Status: Acute Qualifiers: Constipation type: slow transit constipation Qualified Code(s): K59.01 - Slow transit constipation - Plan PT/OT, social research assistant, out of bed/ambulate, DVT proph w/SCDs Started Prednisone 40mg daily s/p 1u PRBC's------->7.6 -- contin..monitoring. IV Iron infusion completed Hold Hydralazine/Minoxidil/Lisinopril --coreg and mionoxidil dose decreased D/C Rocephin/Vancomycin Cardiology consult appreciated Appreciated Nephrology consult Bowel regimen CM c/s, PT/OT ordered. [facility] when medically stable. stable to transfer to swing bed -- likely sunday
[2020-02-29] MEDS: Atorvastatin Calcium 40 MG TAB PO SCH (22:30)
[2020-02-29] MEDS: Ubidecarenone 50 MG CAP PO SCH (22:30)
[2020-02-29] MEDS: Lidocaine Patch Removal 1 EACH TOP SCH (22:32)
[2020-03-01 04:39] LABS: #Eosinphils 0.1 thou/uL (0.0-0.7); #Lymphocytes 1.9 thou/uL (1.20-3.40); #Monocytes 0.8 thou/uL (0.11-0.59); #Neutrophils 8.9 thou/uL (1.40-6.50); %Basophils 0.2 % (0.0-1.0); %Eosinophils 1.1 % (0.0-10.0); %Lymphocytes 16.3 % (21.0-51.0); %Monocytes 6.9 % (0.0-10.0); %Neutrophils 75.5 % (42.0-75.0); Hemoglobin 8.2 g/dL (14.0-18.0); Mean Corpuscular Hemoglobin 28.9 pg (27.0-31.0); Mean Corpuscular Volume 82.5 fL (78.0-98.0); Mean Platelet Volume 7.3 fL (7.4-10.4); Platelet Count 389 thou/uL (130-400); RBC Distribution Width 15.4 % (11.5-14.5); Red Blood Cell (RBC) Count 2.83 mill/uL (4.70-6.10); White Blood Cell (WBC) Count 11.7 thou/uL (4.8-10.8)
[2020-03-01] MEDS: Bisacodyl 10 MG SUPP PR SCH ×2 (05:16→11:38)
[2020-03-01] MEDS: Sodium Chloride 0.9% 1,000 ML IV SCH (05:53)
[2020-03-01] MEDS: HumaLOG 300 UNITS/3 ML VIAL SC PRN ×2 (05:54→11:36)
[2020-03-01] MEDS: Minoxidil 10 MG TAB PO SCH (08:29)
[2020-03-01] MEDS: Lidocaine 5% Patch TD SCH (08:29)
[2020-03-01] MEDS: Gabapentin 400 MG CAP PO SCH (08:30)
[2020-03-01] MEDS: Clopidogrel Bisulfate 75 MG TAB PO SCH (08:30)
[2020-03-01] MEDS: Senokot S 8.6-50 MG TAB PO SCH (08:30)
[2020-03-01] MEDS: Aspirin 81 mg Enteric Coated Tablet PO SCH (08:30)
[2020-03-01] MEDS: Ferrous Sulfate 325 MG TAB PO SCH (08:30)
[2020-03-01] MEDS: Carvedilol 6.25 MG TAB PO SCH (08:31)
[2020-03-01] MEDS: predniSONE 20 MG TAB PO SCH (08:31)
[2020-03-01] MEDS: Insulin Glargine 15 UNITS in Pre-Filled Syringe 1 EACH SC SCH (08:32)
[2020-03-01 11:34] VITALS: BP 161/77; TEMP 97.5
--- NOTE | 2020-03-01 21:13 | PRG ---
DATE OF SERVICE: 03/01/2020 SUBJECTIVE: The patient is seen and examined, seems to be doing very well, noted with the following vital signs. OBJECTIVE: VITAL SIGNS: Afebrile. Temperature 98.1, pulse 90, respiratory rate of 13, O2 saturation of 97%. HEENT: Unremarkable. CARDIOVASCULAR: First and second heart sounds were heard. RESPIRATORY SYSTEM: Clear to auscultation. DIGESTIVE SYSTEM: Revealed a benign abdomen with positive bowel sounds. EXTREMITIES: No peripheral edema. SKIN: No new gross rash. LYMPHATICS: No peripheral lymphadenopathy. LABORATORY INVESTIGATION: Showed a hemoglobin of 8.2. Chemistry showed none today. IMPRESSION: 1. Aclgn-hl-xeyikpi kidney disease, which is to be improving. 2. Hypertension, initially suboptimally controlled improved. 3. Chronic kidney disease stage 3 in the context of diabetic nephropathy. 4. Anemia, partly anemia of chronic kidney disease, on erythropoiesis stimulating agent. PLAN: 1. Very close outpatient Nephrology followup strongly recommended for the patient to follow up with me in 4 weeks time. 2. The patient likely to benefit from continuing erythropoiesis stimulating agents in this case, possibly Procrit once every month. 3. Further management to be dependent on the clinical course. Please continue to adjust the antihypertensives to optimize the hemodynamics. Job ID: [id number]
--- NOTE | 2020-03-02 06:56 | DIS ---
DATE OF ADMISSION: 02/18/2020 DATE OF DISCHARGE: 03/01/2020 DISCHARGE MEDICATIONS: 1. Coreg 12.5 mg twice a day. 2. Minoxidil 5 mg daily. 3. Lantus 15 units at bedtime. 4. Humalog 5 units a.c. 5. Retacrit subcu 7 days. His previous blood pressure medications were all discontinued other than what given now. 1. Lipitor 80 mg at bedtime. 2. Aspirin 81 mg daily. 3. Plavix 75 mg daily. 4. Vitamin D2 1.25 mg once a week. 5. Gabapentin 400 mg twice a day. 6. Glipizide 10 mg daily. CONSULTS: With Dr. Medel. PHYSICAL EXAMINATION: VITAL SIGNS: Temperature 97.5, pulse 83, blood pressure 161/77, and saturating 97% on room air. GENERAL: The patient is alert, oriented, appears well. Plan to be discharged to the [facility], and he is agreeable with the plan. CARDIOVASCULAR: Regular rate and rhythm without murmurs, rubs, or gallops. LUNGS: Clear to auscultation bilaterally without wheezing, rales, or rhonchi. ABDOMEN: Soft, nontender, and nondistended. Good bowel sounds. EXTREMITIES: With trace pitting edema. HOSPITAL COURSE: Please refer to history and physical and daily progress notes for more details. Briefly, 64-year-old male with a history of hypertension, stroke, diabetes, hyperlipidemia, CKD stage 3, admitted with fall from his walker. He also had hypertensive urgency with blood pressure 220/120 given labetalol, hydralazine, nitroglycerin paste as well and then blood pressure improved to 147/75. He was further managed along with help from Dr. Medel. At some point, his blood pressure dipped to the low end, so we need to discontinue most of his home blood pressure medications and titrated with Coreg and minoxidil. Minoxidil at 5 mg daily as well as Coreg 12.5 mg twice a day, seems to help with optimal control of blood pressure at least during this hospital stay. He will follow up with Dr. Medel in 4 weeks for continuous monitoring. The patient also had gouty flare-up for which he received prednisone. He had anemia of kidney disease. A unit RBC transfused and his current hemoglobin is closer to 8. With these changes, his care is optimized during his hospital stay and he will be transferred to swing bed. DISCHARGE INSTRUCTIONS: Activity as tolerated. Regular diet. DISCHARGE FOLLOWUP: 1. Follow up with the primary care physician in 1 week after the rehab. 2. Follow up with Dr. Medel, manager poker, in 4 weeks' time. At the time of discharge, the patient is stable. He does not require any further steroid. TIME SPENT: Discharge time took over 35 minutes. Job ID: [id number] MTDD
--- NOTE | 2020-03-02 16:45 | EKG ---
Test Reason : Blood Pressure : / mmHG Vent. Rate : 097 BPM Atrial Rate : 097 BPM P-R Int : 140 ms QRS Dur : 070 ms QT Int : 364 ms P-R-T Axes : 055 039 031 degrees QTc Int : 462 ms Normal sinus rhythm Prolonged QT Abnormal ECG Confirmed by KATIE EVANS DO ([id number]), material expeditor ANNE BANKS ([id number] on 03/02/2020 4:45:12 PM Referred By: Confirmed By:KATIE EVANS DO
== END 2020-03-01 14:10 | disposition swing bed (61) | DRG 553 ==
LOC: ERS 17:36 → 2NO 19:26 → OBSVTOIN 19:26
PROVIDERS: ADMIT Family Medicine; ATTEND Family Medicine
PROC: 30233N1 Transfusion of Nonautologous Red Blood Cells into Peripheral Vein, Percutaneous Approach (ICD-10-PCS; principal; 2020-02-23)
DX: M10.021 Idiopathic gout, right elbow (principal); I21.A1 Myocardial infarction type 2; N17.9 Acute kidney failure, unspecified; R65.10 Systemic inflammatory response syndrome (SIRS) of non-infectious origin without acute organ dysfunction; S53.401A Unspecified sprain of right elbow, initial encounter; E78.5 Hyperlipidemia, unspecified; E78.00 Pure hypercholesterolemia, unspecified; F32.9 Major depressive disorder, single episode, unspecified; I16.0 Hypertensive urgency; I12.9 Hypertensive chronic kidney disease with stage 1 through stage 4 chronic kidney disease, or unspecified chronic kidney disease; E11.22 Type 2 diabetes mellitus with diabetic chronic kidney disease; D63.1 Anemia in chronic kidney disease; W18.30XA Fall on same level, unspecified, initial encounter; K59.01 Slow transit constipation; I95.89 Other hypotension; N18.3 Chronic kidney disease, stage 3 (moderate); Z79.82 Long term (current) use of aspirin; Z79.84 Long term (current) use of oral hypoglycemic drugs; Z79.899 Other long term (current) drug therapy; Z88.1 Allergy status to other antibiotic agents; Z88.2 Allergy status to sulfonamides; Z86.73 Personal history of transient ischemic attack (TIA), and cerebral infarction without residual deficits
CPT/HCPCS: 36415; 36416; 36430; 70450; 71045; 72125; 80048; 80053; 80069; 80202; 81001; 82274; 82550; 82553; 82570; 82668; 82728; 83036; 83540; 83735; 84145; 84156; 84484; 84550; 85007; 85014; 85018; 85025; 85027; 85046; 85049; 85652; 86140; 86850; 86900; 86901; 87040; 87070; 87086; 87205; 89060; 93005; 93306; 93970; 96372; 96374; 96375; 96376; G0378; J0360; J0696; J1650; J1815; J1885; J2001; J2270; J2916; J3370; J3490; J7030; J7512; P9016; Q5105

== ENCOUNTER 2021-02-01 08:46 | Outpatient (CLI) | payer MEDICARE, MEDICAID ==
[2021-02-01] MEDS ORDERED: Iopamidol 370 76% 100 ML VIAL ONE (13:30)
== END 2021-02-01 08:47 | disposition home or self-care (01) ==
LOC: CT 08:46
DX: L89.620 Pressure ulcer of left heel, unstageable (principal); I77.1 Stricture of artery; I70.8 Atherosclerosis of other arteries; K55.1 Chronic vascular disorders of intestine; R93.89 Abnormal findings on diagnostic imaging of other specified body structures
CPT/HCPCS: 75635; 82565; Q9967

== ENCOUNTER 2021-06-25 17:48 | Inpatient (IN) | payer MEDICARE, OTHER ==
[2021-06-25] MEDS ORDERED: Dextrose 50% Abboject 50 ML SYRINGE SLOW IVP PRN (21:45)
[2021-06-25] MEDS ORDERED: Ondansetron PF 4 MG/2 ML Vial IVP PRN (21:45)
[2021-06-25] MEDS ORDERED: Acetaminophen 650 MG Suppository PR PRN (21:45)
[2021-06-25] MEDS ORDERED: Dextrose 5% in Water 1,000 ML IV PRN (21:45)
[2021-06-25] MEDS ORDERED: HumaLOG 300 UNITS/3 ML VIAL SC PRN (21:45)
[2021-06-25] MEDS ORDERED: Ondansetron ODT 4 MG TAB PO PRN (21:45)
[2021-06-25] MEDS ORDERED: Acetaminophen 325 MG TAB PO PRN (21:45)
[2021-06-26 01:45] VITALS: BMI 26.1
[2021-06-26] MEDS ORDERED: Cefepime 2 GM in Sodium Chloride 0.9% 100 ML IVPB SCH (02:00)
[2021-06-26] MEDS: Cefepime 2 GM in Sodium Chloride 0.9% 100 ML IVPB SCH (03:38)
[2021-06-26] MEDS ORDERED: metroNIDAZOLE 500 MG in Premix Bag 1 BAG IVPB SCH (04:00)
[2021-06-26] MEDS: Clindamycin/D5W 600 MG in Premix Bag 1 BAG IVPB SCH ×3 (04:17→19:36)
[2021-06-26 04:53] LABS: #Eosinphils 0.1 thou/uL (0.0-0.7); #Lymphocytes 1.4 thou/uL (1.20-3.40); #Monocytes 0.7 thou/uL (0.11-0.59); %Basophils 0.2 % (0.0-1.0); %Eosinophils 0.9 % (0.0-10.0); %Lymphocytes 16.5 % (21.0-51.0); %Monocytes 9.1 % (0.0-10.0); %Neutrophils 73.4 % (42.0-75.0); Hemoglobin 8.9 g/dL (14.0-18.0); Mean Corpuscular HGB CONC 33.4 g/dL (32.0-36.0); Mean Corpuscular Hemoglobin 29.4 pg (27.0-31.0); Mean Platelet Volume 7.5 fL (7.4-10.4); Platelet Count 148 thou/uL (130-400); RBC Distribution Width 13.5 % (11.5-14.5); Red Blood Cell (RBC) Count 3.03 mill/uL (4.70-6.10); White Blood Cell (WBC) Count 8.2 thou/uL (4.8-10.8)
[2021-06-26 05:14] LABS: Anion Gap 10 mmol/L (10-20); BUN (Urea Nitrogen) 33 mg/dL (8.4-25.7); Calc. Creatinine Clearance 42 mL/min (70-130); Calcium 9.1 mg/dL (7.8-10.44); Carbon Dioxide 25 mmol/L (23-31); Chloride 106 mmol/L (98-107); Glucose 111 mg/dL (80-115); Potassium 4.4 mmol/L (3.5-5.1); Sodium 137 mmol/L (136-145)
[2021-06-26] MEDS ORDERED: FLU VACC QS2021-22(65YR UP)/PF 240 MCG/0.7 ML SYRINGE IM ONE (09:00)
[2021-06-26] MEDS: DULoxetine 30 MG CAP PO SCH (09:47)
[2021-06-26] MEDS: Enoxaparin Sodium 30 MG/0.3 ML SYRINGE SC SCH (09:48)
[2021-06-26] MEDS: Carvedilol 6.25 MG TAB PO SCH ×2 (09:48→16:30)
[2021-06-26] MEDS: Aspirin 81 mg Enteric Coated Tablet PO SCH (09:48)
[2021-06-26] MEDS: HumaLOG 300 UNITS/3 ML VIAL SC PRN (12:18)
[2021-06-26] MEDS ORDERED: Acetaminophen 325 MG TAB PO PRN (12:28)
[2021-06-26] MEDS ORDERED: ONDANSETRON HCL 4 MG PO PRN (12:28)
[2021-06-26] MEDS ORDERED: Ondansetron ODT 4 MG TAB PO PRN (12:35)
[2021-06-26] MEDS ORDERED: Non-Formulary Item 1 EACH (Omega-3 Fatty Acids/Fish Oil [Fish Oil 1,000 Mg Capsule] 1 CAP PO SCH (13:00)
[2021-06-26] MEDS: Gabapentin 300 MG CAP PO SCH ×2 (13:24→21:06)
[2021-06-26] MEDS: Fish Oil 1,000 MG CAP PO SCH ×3 (13:24→21:06)
[2021-06-26] MEDS ORDERED: Gabapentin 400 MG CAP PO SCH (15:00)
[2021-06-26] MEDS: Labetalol HCl 100 MG/20 ML VIAL SLOW IVP PRN (18:16)
[2021-06-26] MEDS: Atorvastatin Calcium 40 MG TAB PO SCH (21:06)
[2021-06-26] MEDS: Tamsulosin HCl 0.4 MG CAP PO SCH (21:06)
[2021-06-27] MEDS: Labetalol HCl 100 MG/20 ML VIAL SLOW IVP PRN (02:25)
[2021-06-27] MEDS: Cefepime 2 GM in Sodium Chloride 0.9% 100 ML IVPB SCH (02:26)
[2021-06-27] MEDS: Clindamycin/D5W 600 MG in Premix Bag 1 BAG IVPB SCH ×2 (03:14→11:38)
[2021-06-27 06:12] LABS: #Eosinphils 0.1 thou/uL (0.0-0.7); #Lymphocytes 1.7 thou/uL (1.20-3.40); #Monocytes 0.9 thou/uL (0.11-0.59); %Basophils 0.1 % (0.0-1.0); %Lymphocytes 21.9 % (21.0-51.0); %Monocytes 11.4 % (0.0-10.0); %Neutrophils 65.6 % (42.0-75.0); Hemoglobin 8.6 g/dL (14.0-18.0); Mean Corpuscular HGB CONC 35.3 g/dL (32.0-36.0); Mean Corpuscular Hemoglobin 30.2 pg (27.0-31.0); Mean Corpuscular Volume 85.6 fL (78.0-98.0); Mean Platelet Volume 7.9 fL (7.4-10.4); Platelet Count 164 thou/uL (130-400); RBC Distribution Width 13.3 % (11.5-14.5); Red Blood Cell (RBC) Count 2.84 mill/uL (4.70-6.10); White Blood Cell (WBC) Count 7.7 thou/uL (4.8-10.8)
[2021-06-27 06:38] LABS: Anion Gap 12 mmol/L (10-20); BUN (Urea Nitrogen) 31 mg/dL (8.4-25.7); Calc. Creatinine Clearance 43 mL/min (70-130); Calcium 9.2 mg/dL (7.8-10.44); Carbon Dioxide 25 mmol/L (23-31); Chloride 105 mmol/L (98-107); Glucose 163 mg/dL (80-115); Potassium 4.5 mmol/L (3.5-5.1); Sodium 137 mmol/L (136-145)
[2021-06-27] MEDS ORDERED: hydrALAZINE 25 MG TAB PO PRN (07:34)
[2021-06-27] MEDS: Enoxaparin Sodium 30 MG/0.3 ML SYRINGE SC SCH (09:09)
[2021-06-27] MEDS: Polyethylene Glycol 3350 17 GM Packet PO SCH (09:09)
[2021-06-27] MEDS: DULoxetine 30 MG CAP PO SCH (09:10)
[2021-06-27] MEDS: Fish Oil 1,000 MG CAP PO SCH ×4 (09:10→20:25)
[2021-06-27] MEDS: Carvedilol 6.25 MG TAB PO SCH (09:10)
[2021-06-27] MEDS: Aspirin 81 mg Enteric Coated Tablet PO SCH (09:11)
[2021-06-27] MEDS: Clopidogrel Bisulfate 75 MG TAB PO SCH (09:11)
[2021-06-27] MEDS: Gabapentin 300 MG CAP PO SCH ×3 (09:11→20:25)
[2021-06-27] MEDS: NIFEdipine XL 90 MG TAB PO SCH (09:11)
[2021-06-27] MEDS: Allopurinol 100 MG TAB PO SCH (09:11)
[2021-06-27] MEDS: Carvedilol 25 MG TAB PO SCH (17:39)
[2021-06-27] MEDS: Atorvastatin Calcium 40 MG TAB PO SCH (20:25)
[2021-06-27] MEDS: Tamsulosin HCl 0.4 MG CAP PO SCH (20:25)
[2021-06-28] MEDS: Cefepime 2 GM in Sodium Chloride 0.9% 100 ML IVPB SCH (02:23)
[2021-06-28] MEDS: Enoxaparin Sodium 30 MG/0.3 ML SYRINGE SC SCH (07:53)
[2021-06-28] MEDS: NIFEdipine XL 90 MG TAB PO SCH (07:54)
[2021-06-28] MEDS: Allopurinol 100 MG TAB PO SCH (07:54)
[2021-06-28] MEDS: DULoxetine 30 MG CAP PO SCH (07:54)
[2021-06-28] MEDS: Gabapentin 300 MG CAP PO SCH ×2 (07:54→15:58)
[2021-06-28] MEDS: Carvedilol 25 MG TAB PO SCH ×2 (07:54→15:59)
[2021-06-28] MEDS: Polyethylene Glycol 3350 17 GM Packet PO SCH (07:55)
[2021-06-28] MEDS: Fish Oil 1,000 MG CAP PO SCH ×3 (07:55→15:58)
[2021-06-28] MEDS: Aspirin 81 mg Enteric Coated Tablet PO SCH (07:55)
[2021-06-28] MEDS: Clopidogrel Bisulfate 75 MG TAB PO SCH (07:55)
[2021-06-28] MEDS: HumaLOG 300 UNITS/3 ML VIAL SC PRN (11:27)
[2021-06-28] MEDS: Labetalol HCl 100 MG/20 ML VIAL SLOW IVP PRN (16:02)
[2021-06-28 16:04] VITALS: TEMP 98.7
[2021-06-28 17:05] VITALS: BP 164/75
== END 2021-06-28 17:00 | DRG 638 ==
LOC: 2NO 20:25
PROVIDERS: ADMIT Internal Medicine; ATTEND Internal Medicine
DX: E11.621 Type 2 diabetes mellitus with foot ulcer (principal); I13.0 Hypertensive heart and chronic kidney disease with heart failure and stage 1 through stage 4 chronic kidney disease, or unspecified chronic kidney disease; I50.32 Chronic diastolic (congestive) heart failure; L97.429 Non-pressure chronic ulcer of left heel and midfoot with unspecified severity; I25.10 Atherosclerotic heart disease of native coronary artery without angina pectoris; E11.22 Type 2 diabetes mellitus with diabetic chronic kidney disease; G89.29 Other chronic pain; D63.1 Anemia in chronic kidney disease; F03.90 Unspecified dementia, unspecified severity, without behavioral disturbance, psychotic disturbance, mood disturbance, and anxiety; E11.40 Type 2 diabetes mellitus with diabetic neuropathy, unspecified; E11.51 Type 2 diabetes mellitus with diabetic peripheral angiopathy without gangrene; Z20.822 Contact with and (suspected) exposure to COVID-19; L97.529 Non-pressure chronic ulcer of other part of left foot with unspecified severity; H54.7 Unspecified visual loss; M19.90 Unspecified osteoarthritis, unspecified site; N18.30 Chronic kidney disease, stage 3 unspecified; Z89.519 Acquired absence of unspecified leg below knee; Z86.73 Personal history of transient ischemic attack (TIA), and cerebral infarction without residual deficits; Z88.0 Allergy status to penicillin; Z88.2 Allergy status to sulfonamides; Z88.8 Allergy status to other drugs, medicaments and biological substances; Z79.82 Long term (current) use of aspirin; Z79.899 Other long term (current) drug therapy; Z79.4 Long term (current) use of insulin; I25.2 Old myocardial infarction
CPT/HCPCS: 36415; 36416; 80048; 85025; J0692; J1650; J3490